=== PATIENT | male | born 1945 | race Caucasian/White ===

== ENCOUNTER 2019-08-04 09:34 | Emergency (ER) | payer OTHER, SELFPAY ==
[2019-08-04 09:41] VITALS: BP 162/65; PULSE 79; RESP 18; TEMP 36.5; O2SAT 94
--- NOTE | 2019-08-04 09:46 | ED.GENADULT ---
HPI - General Adult General Chief complaint: Back Pain/Injury Stated complaint: fell last night,back hurts Time Seen by Provider: 08/04/19 09:42 Source: patient Mode of arrival: Ambulatory Limitations: no limitations History of Present Illness HPI narrative: 73-year-old male here for evaluation of left lower back/rib pain. Patient states that last evening he admits to having some alcohol. States that he slipped in his bathroom falling back hitting this portion of his back on the toilet. Did not hit his head. No loss of consciousness. No other injuries from the event. No problems breathing. Came in today for evaluation. Related Data Home Medications Medication Instructions Recorded Confirmed budesonide-formoterol [Symbicort] 2 puff INHALATION BID 08/04/19 08/04/19 clotrimazole [Athlete's Foot 1 applic TOPICAL BID 08/04/19 08/04/19 (clotrimazole)] finasteride 1.25 mg PO DAILY 08/04/19 08/04/19 imiquimod 4 applic TOPICAL WEEKLY 08/04/19 08/04/19 ipratropium-albuterol [Combivent 1 puff INHALATION 6XD 08/04/19 08/04/19 Respimat] loratadine 10 mg PO DAILY 08/04/19 08/04/19 losartan 50 mg PO DAILY 08/04/19 08/04/19 minoxidil 0.6 mg PO DAILY 08/04/19 08/04/19 montelukast [Singulair] 10 mg PO DAILY 08/04/19 08/04/19 rosuvastatin 40 mg PO DAILY 08/04/19 08/04/19 terbinafine HCl 250 mg PO DAILY 08/04/19 08/04/19 Previous Rx's Medication Instructions Recorded acetaminophen-codeine 1 tab PO Q4-6H PRN #10 tab 08/04/19 [Tylenol-Codeine #3] Allergies Allergy/AdvReac Type Severity Reaction Status Date / Time No Known Drug Allergies Allergy Verified 08/04/19 09:53 Review of Systems Constitutional Constitutional: Denies fever(s) and Denies frequent falls ENT Ears, Nose, Mouth, and Throat: Denies vertigo and Denies dizziness Cardiovascular Cardiovascular: Denies chest pain and Denies dyspnea Respiratory Respiratory: Denies dyspnea Gastrointestinal Gastrointestinal: Denies abdominal pain, Denies nausea and Denies vomiting Musculoskeletal Musculoskeletal: Reports back pain Integumentary/Breasts Skin/Breast: Denies lesions and Denies rash Neurologic Neurologic: Denies behavioral changes, Denies vertigo, Denies dizziness and Denies frequent falls Psychiatric Psychiatric: Denies behavioral changes Hematologic/Lymphatic Hematologic/Lymphatic: Denies easy bleeding and Denies easy bruising Patient History Medical History Patient denies medical problems (Acute) Social History Smoking Status: Former smoker Exam Initial Vital Signs Initial Vital Signs: Vital Signs Temperature 97.7 F 08/04/19 09:41 Pulse Rate 79 08/04/19 09:41 Respiratory Rate 18 08/04/19 09:41 Blood Pressure 162/65 H 08/04/19 09:41 Pulse Oximetry 94 08/04/19 09:41 Const General: cooperative and comfortable Orientation: alert, awake and oriented x3 HENMT Head: normal to inspection and normocephalic Resp Effort & Inspection: normal respiratory effort Auscultation: clear to auscultation bilaterally Cardio Rate: regular rate Rhythm: regular rhythm Back/Spine/Pelvis Back: No CVA tenderness Other: Tenderness to palpation left lower posterior ribs. Skin Lesions: no lesions Rashes: no rashes Neuro General: alert, awake and oriented x3 Cognition: normal cognition Speech: speech normal Gait: normal gait Extrem General: normal to inspection and capillary refill normal Psych Appearance: grossly normal and well kempt Course Orders Ordered: ED Orders 08/04/19 09:46 XR ribs LT min 3V w CXR1V Stat Vital Signs Vital signs: Vital Signs - 8 hr 08/04/19 09:41 Temperature 97.7 F Pulse Rate 79 Respiratory Rate 18 Blood Pressure 162/65 H Pulse Oximetry 94 Medical Decision Making Imaging Data rib x-ray: Radiologist's impression: [address] [address] XRay Report Signed Patient: Reynaldo Joya CMR#: [id number] : 8Acct:[id number] Age/Sex: 73 / MDate of Service: 08/04/19 Loc: ED Accession Number: [id number] Procedure: XR ribs LT min 3V w CXR1V Ordering Provider: Marino Mccarthy D.O. PROCEDURE: XR RIBS LT MIN 3V W CXR1V INDICATIONS: Left lower ribs posterior after fall TECHNIQUE: 3 views of the left ribs were acquired, along with a single view chest. COMPARISON: None. FINDINGS: Surgical changes and devices: Left upper abdominal postoperative clips are seen. Bones and chest wall: There is a mild displaced left posterior 8th rib fracture. No definite, additional fractures can be seen. No suspicious lytic or blastic lesions are seen. S-shaped scoliotic curvature is seen. Age-appropriate bony degenerative changes are seen. Lungs and pleura: No pleural effusions or pneumothorax. Lungs appear clear. Mediastinum: Mediastinal contours appear normal. Heart size is normal. IMPRESSION: Mildly displaced left posterior 8th rib fracture. No pneumothorax is seen. Left upper abdominal postoperative change. Dictated by: Keny Machado M.D. on 08/04/2019 at 9:24 Approved by: Keny Machado M.D. on 08/04/2019 at 9:26 MDM Narrative Medical decision making narrative: Patient's symptoms fairly well controlled. No skin changes. X-ray show posterior 8th rib fracture which does correspond with his physical exam. No signs of pneumonia. No signs of pneumothorax. I did discuss this with the patient. We discussed symptom control and also the importance of taking big deep breaths. We discussed return precautions. He expressed understanding agreement plan. Discharge Plan Departure Patient Disposition: Home Clinical Impression: Left rib fracture Qualifiers: Encounter type: initial encounter Rib fracture type: single rib Fracture type: closed Qualified Code(s): S22.32XA - Fracture of one rib, left side, initial encounter for closed fracture Instructions: DI for Rib Fracture Activity Restrictions/Additional Instructions: It is important that you occasionally take deep breaths. Unfortunately rib fractures are notoriously uncomfortable especially with coughing. Take the medication as needed. Contact your primary provider for follow-up. Return to the emergency department for any new or worsening symptoms Prescriptions: New acetaminophen-codeine [Tylenol-Codeine #3] 300-30 mg tablet 1 tab PO Q4-6H PRN (Reason: pain) Qty: 10 RF: 0 No Action losartan 50 mg Tablet 50 mg PO DAILY RF: 0 terbinafine HCl 250 mg Tablet 250 mg PO DAILY RF: 0 imiquimod 5 % Cream In Packet 4 applic TOPICAL WEEKLY RF: 0 minoxidil 10 mg Tablet 0.6 mg PO DAILY RF: 0 montelukast [Singulair] 10 mg Tablet 10 mg PO DAILY RF: 0 clotrimazole [Athlete's Foot (clotrimazole)] 1 % Cream 1 applic TOPICAL BID RF: 0 finasteride 1 mg Tablet 1.25 mg PO DAILY RF: 0 rosuvastatin 40 mg Tablet 40 mg PO DAILY RF: 0 Symbicort 80-4.5 mcg/actuation Hfa Aerosol Inhaler 2 puff INHALATION BID RF: 0 loratadine 10 mg Capsule 10 mg PO DAILY RF: 0 Combivent Respimat 20-100 mcg/actuation Mist 1 puff INHALATION 6XD RF: 0
--- NOTE | 2019-08-04 11:00 | PC.NURSE ---
Pain is to left upper back/rib area
[2019-08-04 11:03] VITALS: PULSE 67; RESP 16; O2SAT 100
== END 2019-08-04 11:04 | disposition home or self-care (01) ==
PROVIDERS: Emergency Provider Emergency Medicine
DX: S22.32XA Fracture of one rib, left side, initial encounter for closed fracture (principal); W01.190A Fall on same level from slipping, tripping and stumbling with subsequent striking against furniture, initial encounter
CPT/HCPCS: 71101; 99282; 99283

== ENCOUNTER 2019-11-28 14:37 | Emergency (ER) | payer MEDICARE, SELFPAY ==
[2019-11-28 14:45] VITALS: BP 143/57; PULSE 74; RESP 18; TEMP 36.9; O2SAT 100
--- NOTE | 2019-11-28 15:31 | DI.RAD.S_ITS ---
PROCEDURE: XR RIBS LT MIN 3V W CXR1V INDICATIONS: chest pain after ski accident TECHNIQUE: 3 views of the left ribs were acquired, along with a single view chest. COMPARISON: [facility], , XR RIBS LT MIN 3V W CXR1V, 08/04/2019, 10:02. FINDINGS: Surgical changes and devices: None. Bones and chest wall: Posterior mildly displaced seventh and eighth rib fractures are noted. Seventh rib fracture was not as well-seen on prior exam. No suspicious bony lesions. Overlying soft tissues appear unremarkable. Lungs and pleura: No pleural effusions or pneumothorax. Lungs appear clear. Mediastinum: Mediastinal contours appear normal. Heart size is normal. IMPRESSION: Left posterior seventh and right rib fractures appearing subacute. Dictated by: Elida Dubois M.D. on 11/28/2019 at 17:38 Approved by: Elida Dubois M.D. on 11/28/2019 at 17:42
--- NOTE | 2019-11-28 15:35 | ED_ITS ---
HPI - Chest Pain General Chief Complaint: Chest Pain Stated Complaint: ski accident, chest pain Time Seen by Provider: 11/28/19 15:33 Source: patient Mode of arrival: Ambulatory Limitations: no limitations History of Present Illness HPI narrative: 74-year-old gentleman with asthma, hypertension, hyperlipidemia who was skiing about [place] today fell his goggles scratched the left side of his eye and thinks the top of his ski pole impacted his left anterior axillary line and is concerned that he may have a rib fracture. He was able to ski and other 7 runs in the attempt to get back to his truck after this incident and then tried to hours to get home without any difficulties. He has taken 2 aspirin for pain control and not requesting any additional pain medication at this time. Related Data Home Medications Medication Instructions Recorded Confirmed budesonide-formoterol [Symbicort] 1 puff INHALATION DAILY 08/04/19 11/28/19 clotrimazole [Athlete's Foot 1 applic TOPICAL BID 08/04/19 11/28/19 (clotrimazole)] finasteride 1.25 mg PO DAILY 08/04/19 11/28/19 imiquimod 4 applic TOPICAL WEEKLY 08/04/19 11/28/19 ipratropium-albuterol [Combivent 2 - 3 puff INHALATION DAILY 08/04/19 11/28/19 Respimat] loratadine 10 mg PO DAILY PRN 08/04/19 11/28/19 losartan 50 mg PO DAILY 08/04/19 11/28/19 montelukast [Singulair] 10 mg PO DAILY 08/04/19 11/28/19 rosuvastatin 40 mg PO DAILY 08/04/19 11/28/19 terbinafine HCl 250 mg PO DAILY 08/04/19 11/28/19 A/R [place] 2 tab PO DAILY 11/28/19 11/28/19 Anthocyanins 1 dose PO DAILY 11/28/19 11/28/19 Brucaea Seed Oil 1 applic TOPICAL DIRECTED PRN 11/28/19 11/28/19 N-Acetal L-Cysteine 600 mg PO DAILY 11/28/19 11/28/19 [place] 450 mg PO DAILY 11/28/19 11/28/19 Policosanol 10mg 10 mg PO DAILY 11/28/19 11/28/19 Quercetin 1,500 mg PO DAILY 11/28/19 11/28/19 Siberian Ginseng 400 mg PO DAILY 11/28/19 11/28/19 Turmeric Curcumin 1 dose PO DAILY 11/28/19 11/28/19 ascorbic acid (vitamin C) 1 g PO DAILY 11/28/19 11/28/19 cholecalciferol (vitamin D3) 2,000 unit PO DAILY 11/28/19 11/28/19 [Vitamin D3] cod liver oil 30 ml PO DAILY 11/28/19 11/28/19 coenzyme Q10 [CoQ-10] 100 mg PO DAILY 11/28/19 11/28/19 garlic extract 600 mg PO DAILY 11/28/19 11/28/19 minoxidil 0.6 mg PO DAILY 11/28/19 11/28/19 multivitamin with minerals 2 tab PO DAILY 11/28/19 11/28/19 niacinamide 500 mg PO DAILY 11/28/19 11/28/19 prasterone (dhea) [DHEA] 50 mg PO DAILY 11/28/19 11/28/19 resveratrol 250 mg PO DAILY 11/28/19 11/28/19 saw palmetto 160 mg PO DAILY 11/28/19 11/28/19 sildenafil (pulm.hypertension) 20 - 40 mg PO DAILY PRN 11/28/19 11/28/19 undecylenic acid 1 applic TOPICAL BID PRN 11/28/19 11/28/19 Allergies Allergy/AdvReac Type Severity Reaction Status Date / Time No Known Drug Allergies Allergy Verified 08/04/19 09:53 Review of Systems Review of Systems Narrative: Denies ? fever ? cough ? cold ? chills ? dyspnea ? orthopnea ? wheezing ? abdominal pain ? change to bowel or bladder habits ? nausea vomiting ? skin changes ? rashes Patient History Medical History Asthma (Acute) Hyperlipidemia (Acute) Hypertension (Acute) Patient denies medical problems (Acute) Social History Smoking Status: Former smoker Smoking Status: Former smoker alcohol intake frequency: a few times a week Substance Use Type: does not use Exam Narrative Exam Narrative: General: Healthy appearing, in no acute distress. Able to give a complete and coherent history. Well-nourished well-developed HEENT: Moist mucous membranes, normal sclera with reactive pupils, minor abrasion left lateral eyebrow with lateral subconjunctival hemorrhage, mild, left side Neck: No JVD, supple Respiratory: Lungs are clear to auscultation, no wheezing no rales no rhonchi. Full and symmetrical air movement, point tender nipple/left anterior axillary line without contusion abrasion or hematoma Cardiac: Regular rate and rhythm no murmurs no bruits Abdomen: Soft nontender good bowel tones, no flank pain Skin: Warm and dry, no rashes Neurologic: Grossly neurologically intact with no obvious asymmetries or abnormalities Extremities: No trauma, well perfused Psych: Cooperative, appropriate insight and affect Initial Vital Signs Initial Vital Signs: Vital Signs Temperature 98.5 F 11/28/19 14:45 Pulse Rate 74 11/28/19 14:45 Respiratory Rate 18 11/28/19 14:45 Blood Pressure 143/57 H 11/28/19 14:45 Pulse Oximetry 100 11/28/19 14:45 Course Orders Ordered: ED Orders 11/28/19 14:54 EKG-12 Lead Stat 11/28/19 15:31 XR ribs LT min 3V w CXR1V Stat Vital Signs Vital signs: Vital Signs - 8 hr 11/28/19 14:45 11/28/19 17:00 Temperature 98.5 F Pulse Rate 74 64 Respiratory Rate 18 14 Blood Pressure 143/57 H Blood Pressure [Left Arm] 140/60 Pulse Oximetry 100 98 MDM - Chest Pain Medical Records Data Attestation: I reviewed the patient's medical records. Imaging Data Chest x-ray: Attestation: I personally reviewed and interpreted this imaging study as follows: Radiologist's Impression: IMPRESSION: Left posterior seventh and right rib fractures appearing subacute. Dictated by: Elida Dubois M.D. on 11/28/2019 at 17:38 MDM Narrative Medical decision making narrative: No evidence of significant lung injury or rib fracture. No neck pain to suggest cervical injury and minor abrasion to the eye with subconjunctival hemorrhage only. Safe for home discharge. Discharge Plan Departure Patient Disposition: Home Clinical Impression: Fall Qualifiers: Encounter type: initial encounter Qualified Code(s): W19.XXXA - Unspecified fall, initial encounter Contusion of rib on left side Qualifiers: Encounter type: initial encounter Qualified Code(s): S20.212A - Contusion of left front wall of thorax, initial encounter Subconjunctival hemorrhage Qualifiers: Laterality: left Qualified Code(s): H11.32 - Conjunctival hemorrhage, left eye Prescriptions: No Action losartan 50 mg Tablet 50 mg PO DAILY RF: 0 terbinafine HCl 250 mg Tablet 250 mg PO DAILY RF: 0 imiquimod 5 % Cream In Packet 4 applic TOPICAL WEEKLY RF: 0 montelukast [Singulair] 10 mg Tablet 10 mg PO DAILY RF: 0 clotrimazole [Athlete's Foot (clotrimazole)] 1 % Cream 1 applic TOPICAL BID RF: 0 finasteride 1 mg Tablet 1.25 mg PO DAILY RF: 0 rosuvastatin 40 mg Tablet 40 mg PO DAILY RF: 0 budesonide-formoterol [Symbicort] 80-4.5 mcg/actuation Hfa Aerosol Inhaler 1 puff INHALATION DAILY RF: 0 loratadine 10 mg Capsule 10 mg PO DAILY PRN (Reason: Allergy Symptoms) RF: 0 Combivent Respimat 20-100 mcg/actuation Mist 2 - 3 puff INHALATION DAILY RF: 0 sildenafil (pulm.hypertension) 20 mg tablet 20 - 40 mg PO DAILY PRN (Reason: as directed) RF: 0 A/R [place] 2 tab PO DAILY RF: 0 Anthocyanins 1 dose PO DAILY RF: 0 ascorbic acid (vitamin C) 1,000 mg Tablet 1 g PO DAILY RF: 0 saw palmetto 160 mg Capsule 160 mg PO DAILY RF: 0 cod liver oil Oil 30 ml PO DAILY RF: 0 niacinamide 500 mg Tablet 500 mg PO DAILY RF: 0 multivitamin with minerals Tablet 2 tab PO DAILY RF: 0 coenzyme Q10 [CoQ-10] 100 mg Capsule 100 mg PO DAILY RF: 0 garlic extract 600 mg Tablet 600 mg PO DAILY RF: 0 undecylenic acid 25 % Solution 1 applic TOPICAL BID PRN (Reason: nail fungus) RF: 0 cholecalciferol (vitamin D3) [Vitamin D3] 50 mcg (2,000 unit) Capsule 2,000 unit PO DAILY RF: 0 resveratrol 250 mg Capsule 250 mg PO DAILY RF: 0 DHEA 50 mg Tablet 50 mg PO DAILY RF: 0 Brucaea Seed Oil 1 applic topical DIRECTED PRN (Reason: nail fungus) RF: 0 N-Acetal L-Cysteine 600 mg 600 mg PO DAILY RF: 0 [place] 450 mg 450 mg PO DAILY RF: 0 Policosanol 10mg 10 mg PO DAILY RF: 0 Quercetin 500 mg 1,500 mg PO DAILY RF: 0 Siberian Ginseng 400 mg 400 mg PO DAILY RF: 0 Turmeric Curcumin 1 dose PO DAILY RF: 0 minoxidil 0.6 mg 0.6 mg PO DAILY RF: 0
[2019-11-28 17:00] VITALS: BP 140/60; PULSE 64; RESP 14; O2SAT 98
[2019-11-28 18:49] VITALS: BP 140/60; PULSE 60; RESP 12; O2SAT 99
== END 2019-11-28 18:50 | disposition home or self-care (01) ==
PROVIDERS: Emergency Provider Emergency Medicine
DX: S20.212A Contusion of left front wall of thorax, initial encounter (principal); H11.32 Conjunctival hemorrhage, left eye; J45.909 Unspecified asthma, uncomplicated; R07.9 Chest pain, unspecified; I10 Essential (primary) hypertension; E78.5 Hyperlipidemia, unspecified; V00.328A Other snow-ski accident, initial encounter
CPT/HCPCS: 71101; 93005; 93010; 99283; 99284

== ENCOUNTER → 2021-08-23 11:32 | Outpatient (CLI) | payer MEDICARE, SELFPAY ==
[2021-08-23 12:05] LABS: COVID19 -Nasal RAPID Negative (Negative)
== END ==
PROVIDERS: Visit Provider Nurse Practitioner Family
DX: R97.20 Elevated prostate specific antigen [PSA] (principal)
CPT/HCPCS: 87635

== ENCOUNTER → 2022-12-18 10:24 | Outpatient (CLI) | payer MEDICARE, SELFPAY ==
--- NOTE | 2022-12-18 10:25 | DI.RAD.S_ITS ---
PROCEDURE: XR CHEST 2V INDICATIONS: Cough and wheezing TECHNIQUE: 2 views of the chest were acquired. COMPARISON: None. FINDINGS: Surgical changes and devices: None. Lungs and pleura: Lungs are clear. No pleural effusions or pneumothorax. Mediastinum: Mediastinal contours are normal. Heart size is enlarged. Bones and chest wall: No suspicious bony abnormalities. Soft tissues appear unremarkable. IMPRESSION: No acute cardiopulmonary pathology. Dictated by: Jose Daniel Landin M.D. on 12/18/2022 at 10:54 Approved by: Jose Daniel Landin M.D. on 12/18/2022 at 10:54
== END ==
PROVIDERS: PCP Family Medicine; Referring Provider Registered Nurse; Visit Provider Registered Nurse
DX: R05.9 Cough, unspecified (principal)
CPT/HCPCS: 71046

== ENCOUNTER → 2023-09-11 14:55 | Outpatient (CLI) | payer MEDICARE, SELFPAY | PROVIDERS: PCP Family Medicine; Visit Provider Nurse Practitioner Family | DX: J02.9 Acute pharyngitis, unspecified (principal) | CPT/HCPCS: 87070 ==

== ENCOUNTER → 2023-10-18 13:01 | Outpatient (CLI) | payer MEDICARE, SELFPAY ==
[2023-10-18 14:28] LABS: COVID-19 CEPHEID 4-PLEX PCR Negative (Negative); Influenza A - CEPHEID Flu A NEGATIVE (NEGATIVE); Influenza B - CEPHEID Flu B NEGATIVE (NEGATIVE); Respiratory Syncytial Virus Negative (Negative)
== END ==
PROVIDERS: PCP Family Medicine; Visit Provider Physician Assistant
DX: R05.1 Acute cough (principal)
CPT/HCPCS: 0241U

== ENCOUNTER → 2023-10-18 13:24 | Outpatient (CLI) | payer MEDICARE, SELFPAY ==
--- NOTE | 2023-10-18 13:25 | DI.RAD.S_ITS ---
PROCEDURE: XR CHEST 2V INDICATIONS: cough, wheeze, hx asthma TECHNIQUE: 2 views of the chest were acquired. COMPARISON: [facility], CR, XR CHEST 2V, 12/18/2022, 10:36. FINDINGS: Surgical changes and devices: None. Lungs and pleura: Lungs are clear. No pleural effusions or pneumothorax. Mediastinum: Mediastinal contours are normal. Heart size is normal. Bones and chest wall: No suspicious bony abnormalities. Accentuated thoracic kyphosis is seen. Age-appropriate bony degenerative changes are seen. Soft tissues appear unremarkable. IMPRESSION: No acute cardiopulmonary abnormality is seen. No focal infiltrates are seen. Dictated by: Keny Machado M.D. on 10/18/2023 at 13:14 Approved by: Keny Machado M.D. on 10/18/2023 at 13:14
== END ==
LOC: RAD 13:25
PROVIDERS: PCP Family Medicine; Referring Provider Physician Assistant; Visit Provider Physician Assistant
DX: R05.1 Acute cough (principal); J45.909 Unspecified asthma, uncomplicated; M40.204 Unspecified kyphosis, thoracic region
CPT/HCPCS: 0241U; 71046

== ENCOUNTER 2024-08-14 01:08 | Emergency (ER) | payer MEDICARE, SELFPAY ==
[2024-08-14 01:14] VITALS: BP 136/63; PULSE 57; RESP 16; O2SAT 98; BMI 25.8
--- NOTE | 2024-08-14 01:17 | EKG_ITS ---
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
--- NOTE | 2024-08-14 01:22 | ED_ITS ---
HPI - Chest Pain General Chief Complaint: Chest Pain Stated Complaint: chest pain Time Seen by Provider: 08/14/24 01:09 Source: patient Mode of arrival: Ambulatory History of Present Illness HPI narrative: 78-year-old male with history of hypertension, hyperlipidemia, history of thoracic aneurysm (monitored yearly by cardiology - no management at this time) presents by private vehicle for chest pain. Patient states that 2 days ago he notice central chest pressure. He kept expecting it to go away on its own. This evening when he went to go lay down for bed the chest pain intensified and he presented for evaluation. Patient noted to have STEMI on arrival. Denies previous history of coronary artery disease. No history of stents. Related Data Home Medications Medication Instructions Recorded Confirmed budesonide-formoterol HFA 80 1 puff inhalation DAILY 08/04/19 10/18/23 mcg-4.5 mcg/actuation aerosol inhaler (Symbicort) clotrimazole 1 % topical cream 1 applic topical BID 08/04/19 10/18/23 (Athlete's Foot (clotrimazole)) finasteride 1 mg tablet 1.25 mg PO DAILY 08/04/19 10/18/23 imiquimod 5 % topical cream packet 4 applic topical WEEKLY 08/04/19 10/18/23 ipratropium 20 mcg-albuterol 100 2 - 3 puff inhalation DAILY 08/04/19 10/18/23 mcg/actuation mist for inhalation (Combivent Respimat) loratadine 10 mg capsule 10 mg PO DAILY PRN Allergy Symptoms 08/04/19 10/18/23 losartan 50 mg tablet 50 mg PO DAILY 08/04/19 10/18/23 montelukast 10 mg tablet 10 mg PO DAILY 08/04/19 10/18/23 (Singulair) rosuvastatin 40 mg tablet 40 mg PO DAILY 08/04/19 10/18/23 terbinafine HCl 250 mg tablet 250 mg PO DAILY 08/04/19 10/18/23 A/R [place] 2 tab PO DAILY 11/28/19 10/18/23 Anthocyanins 1 dose PO DAILY 11/28/19 10/18/23 Brucaea Seed Oil 1 applic topical DIRECTED PRN 11/28/19 10/18/23 nail fungus N-Acetal L-Cysteine 600 mg PO DAILY 11/28/19 10/18/23 [place] 450 mg PO DAILY 11/28/19 10/18/23 Policosanol 10mg 10 mg PO DAILY 11/28/19 10/18/23 Quercetin 1,500 mg PO DAILY 11/28/19 10/18/23 Siberian Ginseng 400 mg PO DAILY 11/28/19 10/18/23 Turmeric Curcumin 1 dose PO DAILY 11/28/19 10/18/23 ascorbic acid (vitamin C) 1,000 mg 1 g PO DAILY 11/28/19 10/18/23 tablet cholecalciferol (vitamin D3) 50 2,000 unit PO DAILY 11/28/19 10/18/23 mcg (2,000 unit) capsule (Vitamin D3) cod liver oil 30 ml PO DAILY 11/28/19 10/18/23 coenzyme Q10 100 mg capsule 100 mg PO DAILY 11/28/19 10/18/23 (CoQ-10) garlic extract 600 mg tablet 600 mg PO DAILY 11/28/19 10/18/23 minoxidil 0.6 mg PO DAILY 11/28/19 10/18/23 multivitamin with minerals 2 tab PO DAILY 11/28/19 10/18/23 niacinamide 500 mg tablet 500 mg PO DAILY 11/28/19 10/18/23 prasterone (dhea) 50 mg tablet 50 mg PO DAILY 11/28/19 10/18/23 (DHEA) resveratrol 250 mg capsule 250 mg PO DAILY 11/28/19 10/18/23 saw palmetto 160 mg capsule 160 mg PO DAILY 11/28/19 10/18/23 sildenafil (pulm.hypertension) 20 20 - 40 mg PO DAILY PRN as directed 11/28/19 10/18/23 mg tablet undecylenic acid 25 % topical 1 applic topical BID PRN nail 11/28/19 10/18/23 solution fungus Previous Rx's Medication Instructions Recorded amoxicillin 875 mg-potassium 1 tab PO BID pneumonia #10 tabs 10/18/23 clavulanate 125 mg tablet azithromycin 250 mg tablet See Rx Instructions PO .COMPLEX 10/18/23 pneumonia #6 tabs Allergies Allergy/AdvReac Type Severity Reaction Status Date / Time No Known Drug Allergies Allergy Verified 10/18/23 12:58 Patient History Medical History (Updated 08/14/24 @ 01:27 by Ruth Erickson MD) Asthma Hyperlipidemia Hypertension Patient denies medical problems Social History Smoking Status: Former smoker Smoking Status: Former smoker alcohol intake frequency: a few times a week Substance Use Type: does not use Exam Initial Vital Signs Initial Vital Signs: Vital Signs Pulse Rate 57 L 08/14/24 01:14 Respiratory Rate 16 08/14/24 01:14 Blood Pressure 136/63 08/14/24 01:14 Pulse Oximetry 98 08/14/24 01:14 Oxygen Delivery Method Room Air 08/14/24 01:14 Const: Awake, alert, no acute distress, nontoxic appearing Cardiac: regular rate, regular rhythm RESP: unlabored, clear bilaterally, no wheezing MSK: No edema, full range of motion, pulses equal Skin: Warm, Dry, intact, no rashes Neuro: AO x3, CN II-XII grossly intact, moves all extremities Course Orders Ordered: ED Orders 08/14/24 01:14 EKG-12 Lead Stat 08/14/24 01:20 Complete Blood Count AUTO DIFF Stat Comprehensive Metabolic Panel Stat Lipase Stat Magnesium Stat NT-proBNP (BNP-Adult 18+) Stat PTT Partial Thromboplastin Fernando Stat Prothrombin Time INR Stat Troponin & CK Cardiac Panel Stat Discontinued Medications Aspirin (Aspirin 81 Mg Chew Tab) 324 mg PO NOW ONE Stop: 08/14/24 01:15 Last Admin: 08/14/24 01:25 Dose: 324 mg Documented By: AJ Clopidogrel Bisulfate (Clopidogrel 75 Mg Tablet) 300 mg PO NOW ONE Stop: 08/14/24 01:28 Last Admin: 08/14/24 01:37 Dose: 300 mg Documented By: AJ Heparin Sodium (Porcine) (Heparin 5,000 Unit/Ml Vial) 5,000 unit 60 unit/kg (5000 unit) IV NOW ONE Stop: 08/14/24 01:19 Last Admin: 08/14/24 01:26 Dose: 5,000 unit Documented By: AJ Vital Signs Vital signs: Vital Signs - 8 hr 08/14/24 01:14 08/14/24 01:29 Temperature 97.2 F L Pulse Rate 57 L 72 Respiratory Rate 16 16 Blood Pressure 136/63 209/86 H Pulse Oximetry 98 98 Oxygen Delivery Method Room Air Room Air MDM - Chest Pain Lab Data 08/14/24 01:20 08/14/24 01:20 Labs: Lab Results 08/14/24 Range/Units 01:20 WBC 7.1 (4.5-11.0) X10^3/uL RBC 4.74 (4.5-5.9) X10^6/uL Hgb 14.7 (13.5-17.5) g/dL Hct 43.5 (41-53) % MCV 91.8 (80-100) fL MCH 31.0 (26-34) PG MCHC 33.8 (30-36) % RDW 14.0 (11.6-14.8) % Plt Count 223 (150-400) X10^3/uL Neut % (Auto) 50.1 (50-75) % Lymph % (Auto) 31.6 (25-40) % [place] % (Auto) 12.1 (3-14) % Eos % (Auto) 5.4 H (2-4) % Baso % (Auto) 0.8 (0-2) % Neut # (Auto) 3600 (1737-1638) /uL Lymph # (Auto) 2200 (3992-0954) /uL Forest # (Auto) 900 (0-900) /uL Eos # (Auto) 400 (0-450) /uL Baso # (Auto) 100 (0-100) /uL PT 10.5 (9.4-12.5) SECONDS INR 0.9 (0.9-1.3) APTT 36 (25.1-36.5) SECONDS Sodium 136 L (137-145) mmol/L Potassium 3.6 (3.4-5.1) mmol/L Chloride 104 (98-107) mmol/L Carbon Dioxide 30 (22-32) mmol/L BUN 19 (9-20) mg/dL Creatinine 1.13 (0.66-1.25) mg/dL Estimated GFR > 60 (>60) mL/min BUN/Creatinine Ratio 16.8 (6-22) Glucose 113 H (80-110) mg/dL Calcium 9.6 (8.4-10.2) mg/dL Magnesium 2.0 (1.6-2.3) mg/dL Total Bilirubin 0.4 (0.2-1.3) mg/dL AST 51 (17-59) IU/L ALT 30 (<50) IU/L Alkaline Phosphatase 44 (38-126) U/L Total Creatine Kinase 98 (55-170) U/L Troponin I 0.916 H* (0.01-0.034) ng/mL NT-Pro-B Natriuret Pep 731 H (<450) pg/mL Total Protein 6.7 (6.3-8.2) g/dL Albumin 4.0 (3.5-5.0) g/dL Globulin 2.7 (1.7-4.1) g/dL Albumin/Globulin Ratio 1.5 (1.0-2.8) Lipase 187 (23-300) U/L ECG Data Attestation: I personally reviewed and interpreted this ECG as follows: Interpretation: ST elevations II, III, aVF, depressions V2, V3, V4. STEMI. Sinus bradycardia 57bpm MDM Narrative Medical decision making narrative: Two days of central chest pain, found to have STEMI on arrival. Patient is calm, cooperative, not diaphoretic or in severe distress at this time. Aspirin 2, heparin bolus administered. Stat call placed to [facility], patient accepted by Dr. Kolb. Patient placed on defibrillator. He was made aware of his diagnosis and agrees to transport. Discharge Plan Departure Patient Disposition: [facility] Clinical Impression: ST elevation (STEMI) myocardial infarction Prescriptions: No Action azithromycin 250 mg tablet See Rx Instructions PO .COMPLEX Qty: 6 0RF Rx Instructions: For 250 mg dose pack: take 500 mg today (day 1), then 250 mg for 4 days (days 2-5) PO amoxicillin-pot clavulanate 875-125 mg tablet 1 tab PO BID Qty: 10 0RF losartan 50 mg Tablet 50 mg PO DAILY terbinafine HCl 250 mg Tablet 250 mg PO DAILY imiquimod 5 % Cream In Packet 4 applic TOPICAL WEEKLY montelukast [Singulair] 10 mg Tablet 10 mg PO DAILY Patient Comments: during hay fever season only clotrimazole [Athlete's Foot (clotrimazole)] 1 % Cream 1 applic TOPICAL BID finasteride 1 mg Tablet 1.25 mg PO DAILY rosuvastatin 40 mg Tablet 40 mg PO DAILY budesonide-formoterol [Symbicort] 80-4.5 mcg/actuation Hfa Aerosol Inhaler 1 puff INHALATION DAILY loratadine 10 mg Capsule 10 mg PO DAILY PRN (Reason: Allergy Symptoms) Patient Comments: patient lists during hay fever season only Combivent Respimat 20-100 mcg/actuation Mist 2 - 3 puff INHALATION DAILY sildenafil (pulm.hypertension) 20 mg tablet 20 - 40 mg PO DAILY PRN (Reason: as directed) Patient Comments: TAKE 1 TO 2 TABLETS BY MOUTH ONCE daily NEEDED A/R [place] 2 tab PO DAILY Patient Comments: Glucosamine 750mg, MSM 850mg Anthocyanins 1 dose PO DAILY Patient Comments: in vick juice ascorbic acid (vitamin C) 1,000 mg Tablet 1 g PO DAILY saw palmetto 160 mg Capsule 160 mg PO DAILY cod liver oil Oil 30 ml PO DAILY niacinamide 500 mg Tablet 500 mg PO DAILY multivitamin with minerals Tablet 2 tab PO DAILY Patient Comments: Al's formula coenzyme Q10 [CoQ-10] 100 mg Capsule 100 mg PO DAILY garlic extract 600 mg Tablet 600 mg PO DAILY undecylenic acid 25 % Solution 1 applic TOPICAL BID PRN (Reason: nail fungus) cholecalciferol (vitamin D3) [Vitamin D3] 50 mcg (2,000 unit) Capsule 2,000 unit PO DAILY resveratrol 250 mg Capsule 250 mg PO DAILY DHEA 50 mg Tablet 50 mg PO DAILY Brucaea Seed Oil 1 applic topical DIRECTED PRN (Reason: nail fungus) N-Acetal L-Cysteine 600 mg 600 mg PO DAILY [place] 450 mg 450 mg PO DAILY Policosanol 10mg 10 mg PO DAILY Quercetin 500 mg 1,500 mg PO DAILY Siberian Ginseng 400 mg 400 mg PO DAILY Turmeric Curcumin 1 dose PO DAILY minoxidil 0.6 mg 0.6 mg PO DAILY Referrals: Tea Campbell MD [Primary Care Provider] -
[2024-08-14] MEDS: ASPIRIN 81 MG CHEW TAB 324 MG PO (01:25)
[2024-08-14 01:26] LABS: Add Manual Diff / Slide Review NO; Basophils Absolute Auto 100 /uL (0-100); Basophils Percent Auto 0.8 % (0-2); Eosinophils Absolute Auto 400 /uL (0-450); Eosinophils Percent Auto 5.4 % (2-4); Hematocrit 43.5 % (41-53); Hemoglobin 14.7 g/dL (13.5-17.5); Lymphocytes Absolute Auto 2200 /uL (1100-4500); Lymphocytes Percent Auto 31.6 % (25-40); Mean Corpuscular HGB Conc 33.8 % (30-36); Mean Corpuscular Volume 91.8 fL (80-100); Monocytes Absolute Auto 900 /uL (0-900); Monocytes Percent Auto 12.1 % (3-14); Neutrophils Absolute Auto 3600 /uL (1500-7000); Neutrophils Percent Auto 50.1 % (50-75); Platelet Count 223 X10^3/uL (150-400); Red Blood Cell Count 4.74 X10^6/uL (4.5-5.9); White Blood Cell Count 7.1 X10^3/uL (4.5-11.0)
[2024-08-14] MEDS: HEPARIN 5,000 UNIT/ML VIAL 5000 UNIT IV (01:26)
[2024-08-14 01:29] VITALS: BP 209/86; PULSE 72; RESP 16; TEMP 36.2; O2SAT 98
[2024-08-14 01:33] LABS: INR 0.9 (0.9-1.3); Prothrombin Time 10.5 SECONDS (9.4-12.5)
[2024-08-14 01:36] LABS: Alanine Aminotransferase 30 IU/L (<50); Albumin Globulin Ratio 1.5 (1.0-2.8); Alkaline Phosphatase 44 U/L (38-126); Aspartate Aminotransferase 51 IU/L (17-59); BUN Creatinine Ratio 16.8 (6-22); Bilirubin Total 0.4 mg/dL (0.2-1.3); Blood Urea Nitrogen 19 mg/dL (9-20); Calcium 9.6 mg/dL (8.4-10.2); Carbon Dioxide 30 mmol/L (22-32); Chloride 104 mmol/L (98-107); Creatine Kinase 98 U/L (55-170); Estimated Glomerular Filt Rate > 60 mL/min (>60); Globulin 2.7 g/dL (1.7-4.1); Glucose 113 mg/dL (80-110); HEMOLYSIS 26 (0-50); Lipase 187 U/L (23-300); PTT Partial Thromboplastin Tim 36 SECONDS (25.1-36.5); Potassium 3.6 mmol/L (3.4-5.1); Sodium 136 mmol/L (137-145); Total Protein 6.7 g/dL (6.3-8.2)
[2024-08-14] MEDS: CLOPIDOGREL 75 MG TABLET 300 MG PO (01:37)
[2024-08-14 01:48] LABS: NT-proBNP (BNP-Adult 18+) 731 pg/mL (<450)
[2024-08-14 01:51] LABS: Troponin I 0.916 ng/mL (0.01-0.034)
== END 2024-08-14 01:38 | disposition short-term general hospital (02) ==
PROVIDERS: Emergency Provider Emergency Medicine; PCP Family Medicine
DX: I21.3 ST elevation (STEMI) myocardial infarction of unspecified site (principal); R00.1 Bradycardia, unspecified
CPT/HCPCS: 36415; 80053; 82550; 83690; 83735; 83880; 84484; 85025; 85610; 85730; 93005; 96374; 99284; 99285; J1644

== ENCOUNTER → 2024-10-17 07:42 | Outpatient (CLI) | payer MEDICARE, SELFPAY ==
--- NOTE | 2024-10-17 | DI.MRI.S_ITS ---
PROCEDURE: MR ANKLE RT WO CON INDICATIONS: Strain of Achilles Tendon TECHNIQUE: Noncontrast sagittal T1 spin echo and T2 fast spin echo with fat saturation, axial proton density fast spin echo and T2 fast spin echo with fat saturation, coronal T1 spin echo and T2 fast spin echo with fat saturation through the ankle/hindfoot. COMPARISON: None. FINDINGS: Image quality: Excellent. Bones and joints: There is diffuse subcutaneous soft tissue edema around distal lower leg extending to hindfoot and midfoot. There is prior internal fixation of tibial shaft with intramedullary meaghan and surgical screws in place causing significant susceptibility artifacts. No gross marrow edema. No acute fracture or dislocation. No osteochondral injuries of talar dome. Mild midfoot and hindfoot joint osteoarthritic changes are seen. Small amount of tibiotalar joint effusion, no loose bodies. Small plantar and dorsal calcaneal enthesophytes are seen. Medial structures: The posterior tibialis, flexor digitorum longus, and flexor hallucis longus tendons are intact. The posterior tibial neurovascular bundle appears normal within the tarsal tunnel, without extrinsic mass effect. The deltoid ligament is intact. Mildly thickened spring ligament is noted near its distal insertion. Lateral structures: The anterior talofibular, calcaneofibular, and posterior talofibular ligaments appear intact. More superiorly, the anterior and posterior tibiofibular ligaments appear intact, as is the intermalleolar ligament. The tibiofibular syndesmosis is normal in width at 2 mm or less. The peroneus longus and brevis tendons demonstrate normal location and morphology. No signal abnormality is seen within the sinus tarsi. Anterior structures: The tibialis anterior, extensor hallucis longus, and extensor digitorum longus tendons appear intact. The dorsal talonavicular ligament appears intact. Posterior and plantar structures: Moderate grade intrasubstance partial-thickness tear involving Achilles tendon approximately 6.3 cm from its insertion on posterior calcaneus with up to 1.6 cm proximal retraction of torn tendon fibers . No full-thickness tendon rupture. Medial and lateral bands of the plantar fascia are of normal thickness. No abductor digiti quinti muscle atrophy to suggest Dillon neuropathy. IMPRESSION: 1. Moderate grade intrasubstance partial-thickness tear involving Achilles tendon approximately 6.3 cm from its insertion of posterior calcaneus with up to 1.6 cm proximal retraction of torn tendon fibers. Significant surrounding edema and fluid is seen. No definite full-thickness Achilles tendon rupture. 2. Postsurgical changes in distal tibial shaft with susceptibility artifacts. Mild midfoot and hindfoot joint osteoarthritis. No acute fracture or dislocation. No osteochondral injuries of talar dome. Small tibiotalar joint effusion, no loose bodies. 3. Extensor, flexor, and peroneus tendons are intact. 4. Low-grade sprain involving spring ligament near its distal insertion. No full-thickness ankle ligament rupture. Dictated by: Jose Daniel Landin M.D. on 10/17/2024 at 16:15 Approved by: Jose Daniel Landin M.D. on 10/17/2024 at 16:25
== END ==
PROVIDERS: PCP Family Medicine; Referring Provider Physician Assistant; Visit Provider Physician Assistant
DX: S86.011A Strain of right Achilles tendon, initial encounter (principal); S86.811A Strain of other muscle(s) and tendon(s) at lower leg level, right leg, initial encounter; M19.071 Primary osteoarthritis, right ankle and foot; M25.471 Effusion, right ankle; X58.XXXA Exposure to other specified factors, initial encounter
CPT/HCPCS: 73721

== ENCOUNTER → 2024-10-25 13:39 | Outpatient (CLI) | payer MEDICARE, SELFPAY ==
--- NOTE | 2024-10-25 13:42 | DI.US.S_ITS ---
PROCEDURE: US EXTREMITY NONVASC LOWER RT INDICATIONS: strain in ach TECHNIQUE: Real-time scanning was performed of the right Achilles tendon, with image documentation. COMPARISON: [facility], MR, MR ANKLE RT WO CON, 10/17/2024, 7:46. FINDINGS: There is heterogeneity and thickening of the pre insertional Achilles tendon up to a maximum of 1.1 cm in the AP dimension. Anechoic regions are present within the distal pre insertional Achilles tendon as it approaches the calcaneal tuberosity, indicative of interstitial tearing. Subcutaneous hyperechoic fat signal is present, likely indicative of fat stranding. There is no focal full-thickness discontinuity of the Achilles tendon along its visualized course. IMPRESSION: Interstitial pre insertional Achilles tendon tear, superimposed on moderate tendinosis, without a full-thickness tear. Dictated by: Zackary Arizmendi M.D. on 10/25/2024 at 16:08 Approved by: Zackary Arizmendi M.D. on 10/25/2024 at 16:11
== END ==
PROVIDERS: PCP Family Medicine; Referring Provider Physician Assistant; Visit Provider Physician Assistant
DX: S86.811A Strain of other muscle(s) and tendon(s) at lower leg level, right leg, initial encounter (principal); X58.XXXA Exposure to other specified factors, initial encounter
CPT/HCPCS: 76882

== ENCOUNTER 2024-12-01 08:30 | Outpatient (RCR) | payer MEDICARE, SELFPAY | END 2024-12-01 10:30 | LOC: CAR 08:30 | PROVIDERS: PCP Family Medicine; Referring Provider Internal Medicine; Visit Provider Internal Medicine | DX: I21.11 ST elevation (STEMI) myocardial infarction involving right coronary artery (principal) | CPT/HCPCS: 93798 ==

== ENCOUNTER → 2024-12-31 14:24 | Outpatient (CLI) | payer MEDICARE, SELFPAY ==
--- NOTE | 2024-12-31 14:50 | DI.RAD.S_ITS ---
PROCEDURE: XR CHEST 2V INDICATIONS: Cough TECHNIQUE: 2 views of the chest were acquired. COMPARISON: [facility], CR, XR CHEST 2V, 10/18/2023, 13:45. FINDINGS: Surgical changes and devices: None. Lungs and pleura: Lungs are clear. No pleural effusions or pneumothorax. Mediastinum: Mediastinal contours are normal. Heart size is normal. Bones and chest wall: No suspicious bony abnormalities. Soft tissues appear unremarkable. IMPRESSION: No acute cardiopulmonary pathology. Dictated by: Jose Daniel Landin M.D. on 12/31/2024 at 15:12 Approved by: Jose Daniel Landin M.D. on 12/31/2024 at 15:13
== END ==
PROVIDERS: Family Provider Family Medicine; PCP Family Medicine; Referring Provider Physician Assistant; Visit Provider Physician Assistant
DX: R05.9 Cough, unspecified (principal)
CPT/HCPCS: 0241U; 71046

== ENCOUNTER → 2024-12-31 16:17 | Outpatient (CLI) | payer MEDICARE, SELFPAY ==
[2024-12-31 17:23] LABS: Influenza A - CEPHEID Flu A NEGATIVE (NEGATIVE); Influenza B - CEPHEID Flu B NEGATIVE (NEGATIVE); Respiratory Syncytial Virus Negative (Negative)
[2024-12-31 17:28] LABS: COVID-19 CEPHEID 4-PLEX PCR Negative (Negative)
== END ==
PROVIDERS: Family Provider Family Medicine; PCP Family Medicine; Visit Provider Physician Assistant
DX: R05.9 Cough, unspecified (principal)
CPT/HCPCS: 0241U

== ENCOUNTER 2025-02-16 09:00 | Outpatient (RCR) | payer MEDICARE, SELFPAY ==
--- NOTE | 2024-11-16 11:08 | PT.OIE ---
Current Diagnoses Pain in unspecified ankle and joints of unspecified foot (11/16/24) Strain of unspecified Achilles tendon, initial encounter (11/16/24) Past Medical History (Last Updated 10/27/24 @ 18:18 by Isidra Aaron) Aortic stenosis (~2023) Asthma (~1948) Colon polyps Fractures (~2015) History of kidney cancer (~1993) Hyperlipidemia Hypertension Measles (~1953) Patient denies medical problems Skin cancer Vertigo (~2018) Past Surgical History (Last Updated 11/11/24 @ 12:02 by Kristi Masters MD) Anesthesia History of kidney removal (~1993) S/P right coronary artery (RCA) stent placement (~08/14/24) Tibia/fibula fracture (~10/10/15) Visit Care Team Role Provider Type Kristi Masters MD Attending Provider Physician Family Provider Primary Care Provider Referring Provider Specialty: [facility] BISCUIT MACHINE OPERATOR Address: [address] [place] [address] Email: [email or web address] Physical Therapy Initial Evaluation PT-OP-A Visit Information Start: 11/16/24 09:38 Freq: Status: Active Protocol: Document 11/16/24 09:39 [facility] (Rec: 11/16/24 11:07 [facility] [id number]) Out-Patient Physical Therapy Visit Information Visit Information Visit Type Initial Evaluation Visit Start Time 09:45 Visit Stop Time 10:30 Visit Number 1 Number of WET PROCESS MILLER HEAD ASSISTANT Visits 0 PT-OP-B Current Condition Start: 11/16/24 09:38 Freq: Status: Active Protocol: Document 11/16/24 09:39 [facility] (Rec: 11/16/24 11:07 [facility] [id number]) Current Condition History of Current Condition Onset Date 09/18 Current Complaints R achilles tear History of Current Condition Pt was moving motor cycle onto sscenter stand and lfiting as pushing down on stand and something popped. Went to urgent care and dx w/partial tear and was instructed to call doctor and got into ortho 09/20. Did some testing on it and determined partial achilles tear and didn't give him anything. Still in a lot of pain in 2 weeks and saw them again and saw another PA and got order of MRI and US. Saw Dr. Sandoval who said can' t do anything d/t blood thinners. Has 1 wedge in shoes now. Will see her in December again. Doing cardiac rehab 3x a week and thinks may have overdone it there too. 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 Hx of tibia fibula fx w/fixation in 2016. Walks about 1 mile with dog daily right now on flat. Has to lift dog into car. Prior to this walked 4 miles a day in the [place] Prior Treatments and Tests US:IMPRESSION: Interstitial pre insertional Achilles tendon tear, superimposed on moderate tendinosis, without a full-thickness tear. MRI: IMPRESSION: 1. Moderate grade intrasubstance partial- thickness tear involving Achilles tendon approximately 6.3 cm from its insertion of posterior calcaneus with up to 1.6 cm proximal retraction of torn tendon fibers. Significant surrounding edema and fluid is seen. No definite full-thickness Achilles tendon rupture. 2. Postsurgical changes in distal tibial shaft with susceptibility artifacts. Mild midfoot and hindfoot joint osteoarthritis. No acute fracture or dislocation. No osteochondral injuries of talar dome. Small tibiotalar joint effusion, no loose bodies. 3. Extensor, flexor, and peroneus tendons are intact. 4. Low-grade sprain involving spring ligament near its distal insertion. No full-thickness ankle ligament rupture. Treatment Goals Patient/Caregiver Goals be able to walk, sailing, motorcyling, construction, skiing PT-OP-C Subjective Start: 11/16/24 09:38 Freq: Status: Active Protocol: Document 11/16/24 09:39 [facility] (Rec: 11/16/24 11:07 [facility] [id number]) Patient Questionnaires Lower Extremity Functional Scale LEFS Score 45/80 OP-PT Pain Assessment Location R achilles Pain Location Details achilles and into calf Intensity 3 Scale Used Numeric (0 - 10) Description With Movement Frequency Intermittent Pain Aggravating Factors Walking Other Pain Aggravating Factors ladder(concern) Pain Alleviating Factors Cold,Elevation PT-OP-D Balance Start: 11/16/24 09:38 Freq: Status: Active Protocol: Document 11/16/24 09:39 [facility] (Rec: 11/16/24 11:07 [facility] [id number]) Balance Tests Single Limb Standing Single Limb- Right 2 sec with significant deviation Single Limb- Left > 30sec PT-OP-F Manual Assessment Start: 11/16/24 09:38 Freq: Status: Active Protocol: Document 11/16/24 09:39 [facility] (Rec: 11/16/24 11:07 [facility] [id number]) Manual Assessments Soft Tissue Assessment Soft Tissue Mobility Assessment tighness along calf and achilles PT-OP-G Mobility & Gait Start: 11/16/24 09:38 Freq: Status: Active Protocol: Document 11/16/24 09:39 [facility] (Rec: 11/16/24 11:07 [facility] [id number]) OP Gait Assessment Comments Gait Comments dec stance time on RLE and dec push off. PT-OP-J Posture/Palpation/Skin Start: 11/16/24 09:38 Freq: Status: Active Protocol: Document 11/16/24 09:39 [facility] (Rec: 11/16/24 11:07 [facility] [id number]) Posture Evaluation Comments Posture Comments B supination, R rearfoot varus >L, ER tibia R PT-OP-K Range of Motion Start: 11/16/24 09:38 Freq: Status: Active Protocol: Document 11/16/24 09:39 [facility] (Rec: 11/16/24 11:07 [facility] [id number]) Ankle and Foot Goniometric Range of Motion Ankle and Foot Right Active Dorsiflexion with Knee Flexed 2 Dorsiflexion with Knee Extended 2 Plantarflexion 39 Inversion 20 Eversion 20 Left Active Dorsiflexion with Knee Flexed 2 Dorsiflexion with Knee Extended 10 Plantarflexion 39 Inversion 12 Eversion 18 PT-OP-M Strength Start: 11/16/24 09:38 Freq: Status: Active Protocol: Document 11/16/24 09:39 [facility] (Rec: 11/16/24 11:07 [facility] [id number]) Hip Strength Hip Manual Muscle Testing Right Flexion (L2) 3+ Fair+ Abduction 4 Good External Rotation 3+ Fair+ Internal Rotation 5 Normal Left Flexion (L2) 3+ Fair+ Abduction 4- Good- External Rotation 4- Good- Internal Rotation 5 Normal Knee Strength Knee Manual Muscle Testing Left Flexion (S2) 4+ Good+ Extension (L3) 5 Normal Right Flexion (S2) 4 Good Extension (L3) 5 Normal Ankle/Foot Strength Ankle and Foot Manual Muscle Testing Left Dorsiflexion (L4) 5 Normal Plantarflexion (S1) 5 Normal Inversion 5 Normal Eversion (S1) 5 Normal Comments 20 heel raises Right Dorsiflexion (L4) 3+ Fair+ Plantarflexion (S1) 2 Poor Inversion 3+ Fair+ Eversion (S1) 4- Good- Toe Strength Toe Manual Muscle Testing Right 2nd Toe Flexion 4+ Good+ Extension 4+ Good+ Comments 2-5 Right Great Toe Flexion 4+ Good+ Extension 4+ Good+ Left 2nd Toe Flexion 4+ Good+ Extension 4+ Good+ Comments 2-5 Left Great Toe Flexion 4+ Good+ Extension 4+ Good+ PT-OP-Q Treatments Start: 11/16/24 09:38 Freq: Status: Active Protocol: Document 11/16/24 09:39 [facility] (Rec: 11/16/24 11:07 [facility] [id number]) Therapeutic Exercises Sitting Exercises ankle 4 way Sitting Exercise Name inversion, eversion, DF, PF Side right Equipment Used L1 Reps/Minutes 15 ea Comments cues slow eccentric Standing Exercises heel raises Standing Exercise Name DL slow control down Side bilateral Reps/Minutes 15 Neuro Re-Education Treatment Balance Activities tandem Details B stance Self-Care/Home Management Treatment Education Other Education 8 min: edu re: not inc pain and starting slow d/t tendon tears taking longer to heal than fx and importance of slow progression in order to avoid further injury and allow healing. Edu on importance of balance for progressive stability for boat, skiing etc PT-OP-T Assessment and Plan Start: 11/16/24 09:38 Freq: Status: Active Protocol: Document 11/16/24 09:39 [facility] (Rec: 11/16/24 11:07 [facility] [id number]) Physical Therapy Assessment Rehab Potential Rehabilitation Potential Good Evaluation Complexity Number of Personal Factors/Comorbidities 3 or More Number of Body Systems Impaired 4 or More Clinical Presentation at Evaluation Evolving Impairments Impairments Activity Tolerance,Balance, Edema,Functional Activities, Functional Mobility,Gait,Pain, Posture,ROM,Soft Tissue Mobility,Strength Goals strength Short Term Goal (STG) Pt will be indep w/HEP STG Duration / Professor Of Social Work Goal (LTG) Pt will score at least 4+/5 on all BLE MMT to show improved stability to allow return to full activity. LTG Duration 5 ROM Fci Goal (LTG) Pt will have DF to at least 5 deg in knee ext position and at least 10 deg in knee flex position to allow ability to do typical activities like stairs and ladders w/o inc pain LTG Duration 01/25 balance Short Term Goal (STG) Pt will improve RLE SLS to at least 10 sec to show improved balance. STG Duration / Fci Goal (LTG) Pt will improve RLE SLS to at least 20 sec to show improved balance. 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 LTG Duration 01/25 Assessment Summary Assessment Pt presents 2 months after R achilles partial tear w/ conservative care. He is wearing a wedge in shoe but presents w/only minor limitations in DF and overall otherwise good ROM, but significant weakness and dec balance on RLE. Pt is very active (works construction, hikes, skiis, and sails) typically and is limited to 1 mile walks on flat ground at this tiem and not participating in the other activities. He would benefit from skilled PT to address these deficits and return pt to full funciton without inc pain. Physical Therapy Plan Frequency and Duration Frequency of Treatment 2x/Week Duration of treatment (weeks) 10 Plan of Care Start Date 11/16/24 Plan of Care End Date 01/25/25 Therapeutic Interventions Therapeutic Interventions Balance Training,Gait Training ,Home Exercise Program,Joint Mobilizations,Manual Therapy, Neuromuscular Re-education, Patient/Caregiver Education, Self-Care/Home Management,Soft Tissue Mobilization,Taping, Therapeutic Activities, Therapeutic Exercises Modalities Cold Pack/Ice Massage,Hot Packs,Infrared Therapy, Ultrasound Next Visit Focus/Plan Next Note Type Treatment Note Next Visit Plan review exercises and advance as able; careful to avoid significant achilles stretching (avoid calf stretching until 12/12) manual to calf and foot and ankle; shuttle balance, tandem and SL balance tasks, avoid pain w/activity slowly dec wedge in shoe
--- NOTE | 2024-11-16 11:08 | PT.OPPOC ---
Physical, Occupational & Speech Therapy At [facility] Current Diagnoses Pain in unspecified ankle and joints of unspecified foot (11/16/24) Strain of unspecified Achilles tendon, initial encounter (11/16/24) Visit Care Team Role Provider Type Kristi Masters MD Attending Provider Physician Family Provider Primary Care Provider Referring Provider Specialty: Family Practice PARALEGAL SPECIALIST Address: [address] [place] [address], [id number] Email: [email or web address] Plan Of Care PT-OP-B Current Condition Start: 11/16/24 09:38 Freq: Status: Active Protocol: Document 11/16/24 09:39 [facility] (Rec: 11/16/24 11:07 [facility] [id number]) Current Condition History of Current Condition Onset Date 09/18 Current Complaints R achilles tear History of Current Condition Pt was moving motor cycle onto sscenter stand and lfiting as pushing down on stand and something popped. Went to urgent care and dx w/partial tear and was instructed to call doctor and got into ortho 09/20. Did some testing on it and determined partial achilles tear and didn't give him anything. Still in a lot of pain in 2 weeks and saw them again and saw another PA and got order of MRI and US. Saw Dr. Sandoval who said can' t do anything d/t blood thinners. Has 1 wedge in shoes now. Will see her in December again. Doing cardiac rehab 3x a week and thinks may have overdone it there too. 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 Hx of tibia fibula fx w/fixation in 2016. Walks about 1 mile with dog daily right now on flat. Has to lift dog into car. Prior to this walked 4 miles a day in the forest Prior Treatments and Tests US:IMPRESSION: Interstitial pre insertional Achilles tendon tear, superimposed on moderate tendinosis, without a full-thickness tear. MRI: IMPRESSION: 1. Moderate grade intrasubstance partial- thickness tear involving Achilles tendon approximately 6.3 cm from its insertion of posterior calcaneus with up to 1.6 cm proximal retraction of torn tendon fibers. Significant surrounding edema and fluid is seen. No definite full-thickness Achilles tendon rupture. 2. Postsurgical changes in distal tibial shaft with susceptibility artifacts. Mild midfoot and hindfoot joint osteoarthritis. No acute fracture or dislocation. No osteochondral injuries of talar dome. Small tibiotalar joint effusion, no loose bodies. 3. Extensor, flexor, and peroneus tendons are intact. 4. Low-grade sprain involving spring ligament near its distal insertion. No full-thickness ankle ligament rupture. Treatment Goals Patient/Caregiver Goals be able to walk, sailing, motorcyling, construction, skiing PT-OP-T Assessment and Plan Start: 11/16/24 09:38 Freq: Status: Active Protocol: Document 11/16/24 09:39 [facility] (Rec: 11/16/24 11:07 [facility] [id number]) Physical Therapy Assessment Rehab Potential Rehabilitation Potential Good Evaluation Complexity Number of Personal Factors/Comorbidities 3 or More Number of Body Systems Impaired 4 or More Clinical Presentation at Evaluation Evolving Impairments Impairments Activity Tolerance,Balance, Edema,Functional Activities, Functional Mobility,Gait,Pain, Posture,ROM,Soft Tissue Mobility,Strength Goals strength Short Term Goal (STG) Pt will be indep w/HEP STG Duration 4/ Floor Attendant Goal (LTG) Pt will score at least 4+/5 on all BLE MMT to show improved stability to allow return to full activity. LTG Duration 5/ ROM Floor Attendant Goal (LTG) Pt will have DF to at least 5 deg in knee ext position and at least 10 deg in knee flex position to allow ability to do typical activities like stairs and ladders w/o inc pain LTG Duration 5/7 balance Short Term Goal (STG) Pt will improve RLE SLS to at least 10 sec to show improved balance. STG Duration 4/1 Retirement Goal (LTG) Pt will improve RLE SLS to at least 20 sec to show improved balance. 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 LTG Duration 5 Assessment Summary Assessment Pt presents 2 months after R achilles partial tear w/ conservative care. He is wearing a wedge in shoe but presents w/only minor limitations in DF and overall otherwise good ROM, but significant weakness and dec balance on RLE. Pt is very active (works construction, hikes, skiis, and sails) typically and is limited to 1 mile walks on flat ground at this tiem and not participating in the other activities. He would benefit from skilled PT to address these deficits and return pt to full funciton without inc pain. Physical Therapy Plan Frequency and Duration Frequency of Treatment 2x/Week Duration of treatment (weeks) 10 Plan of Care Start Date 11/16/24 Plan of Care End Date 01/25/25 Therapeutic Interventions Therapeutic Interventions Balance Training,Gait Training ,Home Exercise Program,Joint Mobilizations,Manual Therapy, Neuromuscular Re-education, Patient/Caregiver Education, Self-Care/Home Management,Soft Tissue Mobilization,Taping, Therapeutic Activities, Therapeutic Exercises Modalities Cold Pack/Ice Massage,Hot Packs,Infrared Therapy, Ultrasound Next Visit Focus/Plan Next Note Type Treatment Note Next Visit Plan review exercises and advance as able; careful to avoid significant achilles stretching (avoid calf stretching until 12/12) manual to calf and foot and ankle; shuttle balance, tandem and SL balance tasks, avoid pain w/activity slowly dec wedge in shoe Plan of Care Dates Plan of Care Start Date 11/16/24 Plan of Care End Date 01/25/25 Electronically Signed by: Vaishnavi Reza, PT 11/16/24 [id number] If you are in agreement with this Plan of Care, please return a signed and dated copy. I have reviewed this Plan of Care and certify that the skilled therapy services above are required to meet the patient?s needs. Physician Signature Date Printed Name and Credentials Clinical Instructor Signature Printed Name and Credentials
--- NOTE | 2024-11-21 13:48 | PT.OTN ---
Current Diagnoses Pain in unspecified ankle and joints of unspecified foot (11/21/24) Strain of unspecified Achilles tendon, initial encounter (11/21/24) Physical Therapy Treatment Note PT-OP-A Visit Information Start: 11/16/24 09:38 Freq: Status: Active Protocol: Document 11/21/24 13:02 [facility] (Rec: 11/21/24 13:48 [facility] [id number]) Out-Patient Physical Therapy Visit Information Visit Information Visit Type Treatment Note Visit Start Time 13:03 Visit Stop Time 13:43 Visit Number 2 Number of [employer] RADIO TECHNICIAN Visits 0 PT-OP-B Current Condition Start: 11/16/24 09:38 Freq: Status: Active Protocol: Document 11/16/24 09:39 [facility] (Rec: 11/16/24 11:07 [facility] [id number]) Current Condition History of Current Condition Onset Date 09/18 Current Complaints R achilles tear History of Current Condition Pt was moving motor cycle onto sscenter stand and lfiting as pushing down on stand and something popped. Went to urgent care and dx w/partial tear and was instructed to call doctor and got into ortho 09/20. Did some testing on it and determined partial achilles tear and didn't give him anything. Still in a lot of pain in 2 weeks and saw them again and saw another PA and got order of MRI and US. Saw Dr. Sandoval who said can' t do anything d/t blood thinners. Has 1 wedge in shoes now. Will see her in December again. Doing cardiac rehab 3x a week and thinks may have overdone it there too. 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 Hx of tibia fibula fx w/fixation in 2015. Walks about 1 mile with dog daily right now on flat. Has to lift dog into car. Prior to this walked 4 miles a day in the [place] Prior Treatments and Tests US:IMPRESSION: Interstitial pre insertional Achilles tendon tear, superimposed on moderate tendinosis, without a full-thickness tear. MRI: IMPRESSION: 1. Moderate grade intrasubstance partial- thickness tear involving Achilles tendon approximately 6.3 cm from its insertion of posterior calcaneus with up to 1.6 cm proximal retraction of torn tendon fibers. Significant surrounding edema and fluid is seen. No definite full-thickness Achilles tendon rupture. 2. Postsurgical changes in distal tibial shaft with susceptibility artifacts. Mild midfoot and hindfoot joint osteoarthritis. No acute fracture or dislocation. No osteochondral injuries of talar dome. Small tibiotalar joint effusion, no loose bodies. 3. Extensor, flexor, and peroneus tendons are intact. 4. Low-grade sprain involving spring ligament near its distal insertion. No full-thickness ankle ligament rupture. Treatment Goals Patient/Caregiver Goals be able to walk, sailing, motorcyling, construction, skiing PT-OP-C Subjective Start: 11/16/24 09:38 Freq: Status: Active Protocol: Document 11/21/24 13:02 [facility] (Rec: 11/21/24 13:48 [facility] [id number]) OP-PT Subjective Patient Comments Patient Comments pt reports no pain. Has done tandme balance but not much of other exercises PT-OP-D Balance Start: 11/16/24 09:38 Freq: Status: Active Protocol: Document 11/16/24 09:39 [facility] (Rec: 11/16/24 11:07 [facility] [id number]) Balance Tests Single Limb Standing Single Limb- Right 2 sec with significant deviation Single Limb- Left > 30sec PT-OP-F Manual Assessment Start: 11/16/24 09:38 Freq: Status: Active Protocol: Document 11/16/24 09:39 [facility] (Rec: 11/16/24 11:07 [facility] [id number]) Manual Assessments Soft Tissue Assessment Soft Tissue Mobility Assessment tighness along calf and achilles PT-OP-G Mobility & Gait Start: 11/16/24 09:38 Freq: Status: Active Protocol: Document 11/16/24 09:39 [facility] (Rec: 11/16/24 11:07 [facility] [id number]) OP Gait Assessment Comments Gait Comments dec stance time on RLE and dec push off. PT-OP-J Posture/Palpation/Skin Start: 11/16/24 09:38 Freq: Status: Active Protocol: Document 11/16/24 09:39 [facility] (Rec: 11/16/24 11:07 [facility] [id number]) Posture Evaluation Comments Posture Comments B supination, R rearfoot varus >L, ER tibia R PT-OP-K Range of Motion Start: 11/16/24 09:38 Freq: Status: Active Protocol: Document 11/16/24 09:39 [facility] (Rec: 11/16/24 11:07 [facility] [id number]) Ankle and Foot Goniometric Range of Motion Ankle and Foot Right Active Dorsiflexion with Knee Flexed 2 Dorsiflexion with Knee Extended 2 Plantarflexion 39 Inversion 20 Eversion 20 Left Active Dorsiflexion with Knee Flexed 2 Dorsiflexion with Knee Extended 10 Plantarflexion 39 Inversion 12 Eversion 18 PT-OP-M Strength Start: 11/16/24 09:38 Freq: Status: Active Protocol: Document 11/16/24 09:39 [facility] (Rec: 11/16/24 11:07 [facility] [id number]) Hip Strength Hip Manual Muscle Testing Right Flexion (L2) 3+ Fair+ Abduction 4 Good External Rotation 3+ Fair+ Internal Rotation 5 Normal Left Flexion (L2) 3+ Fair+ Abduction 4- Good- External Rotation 4- Good- Internal Rotation 5 Normal Knee Strength Knee Manual Muscle Testing Left Flexion (S2) 4+ Good+ Extension (L3) 5 Normal Right Flexion (S2) 4 Good Extension (L3) 5 Normal Ankle/Foot Strength Ankle and Foot Manual Muscle Testing Left Dorsiflexion (L4) 5 Normal Plantarflexion (S1) 5 Normal Inversion 5 Normal Eversion (S1) 5 Normal Comments 20 heel raises Right Dorsiflexion (L4) 3+ Fair+ Plantarflexion (S1) 2 Poor Inversion 3+ Fair+ Eversion (S1) 4- Good- Toe Strength Toe Manual Muscle Testing Right 2nd Toe Flexion 4+ Good+ Extension 4+ Good+ Comments 2-5 Right Great Toe Flexion 4+ Good+ Extension 4+ Good+ Left 2nd Toe Flexion 4+ Good+ Extension 4+ Good+ Comments 2-5 Left Great Toe Flexion 4+ Good+ Extension 4+ Good+ PT-OP-Q Treatments Start: 11/16/24 09:38 Freq: Status: Active Protocol: Document 11/21/24 13:02 [facility] (Rec: 11/21/24 13:48 [facility] [id number]) Gym Equipment Shuttle Balance red clips Comments fwd & side: WBOS and NBOS fwd: staggered stance B Therapeutic Exercises Sitting Exercises ankle 4 way Sitting Exercise Name inversion, eversion, DF Side right Equipment Used L1 Reps/Minutes 15 ea Comments cues slow eccentric Standing Exercises heel raises Standing Exercise Name DL slow control down Side bilateral Reps/Minutes 15 Manual Therapy Treatment Consent Patient gave verbal consent for manual Yes treatment Soft Tissue Mobilization calf\ Body Location R gastroc, solues, achilles Mobilization Type Rolling Intensity/Depth Moderate Body Position Prone Neuro Re-Education Treatment Balance Activities SL Comments 1. mod w/LLE on dynadisc 2. mod w/LLE on ball tandem Details rail prn Comments 1. B stance 2. fwd walk 15ft x2 PT-OP-T Assessment and Plan Start: 11/16/24 09:38 Freq: Status: Active Protocol: Document 11/21/24 13:02 [facility] (Rec: 11/21/24 13:48 [facility] [id number]) Physical Therapy Assessment Goals strength Short Term Goal (STG) Pt will be indep w/HEP STG Duration 4/ Preparation Room Manager Goal (LTG) Pt will score at least 4+/5 on all BLE MMT to show improved stability to allow return to full activity. LTG Duration 5/ ROM Preparation Room Manager Goal (LTG) Pt will have DF to at least 5 deg in knee ext position and at least 10 deg in knee flex position to allow ability to do typical activities like stairs and ladders w/o inc pain LTG Duration 5/7 balance Short Term Goal (STG) Pt will improve RLE SLS to at least 10 sec to show improved balance. STG Duration 4/1 Preparation Room Manager Goal (LTG) Pt will improve RLE SLS to at least 20 sec to show improved balance. 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 LTG Duration 5/7 Assessment Summary Assessment Pt did well with exercises today but did require some cues w/exercises. was cahllenged by balance activities. Physical Therapy Plan Frequency and Duration Frequency of Treatment 2x/Week Duration of treatment (weeks) 10 Plan of Care Start Date 11/16/24 Plan of Care End Date 01/25/25 Next Visit Focus/Plan Next Note Type Treatment Note Next Visit Plan review exercises and advance as able; careful to avoid significant achilles stretching (avoid calf stretching until 12/12) manual to calf and foot and ankle; shuttle balance, tandem and SL balance tasks, avoid pain w/activity slowly dec wedge in shoe
--- NOTE | 2024-11-28 15:04 | PT.OTN ---
Current Diagnoses Pain in unspecified ankle and joints of unspecified foot (11/28/24) Strain of unspecified Achilles tendon, initial encounter (11/28/24) Physical Therapy Treatment Note PT-OP-A Visit Information Start: 11/16/24 09:38 Freq: Status: Active Protocol: Document 11/28/24 13:02 [facility] (Rec: 11/28/24 15:04 [facility] [id number]) Out-Patient Physical Therapy Visit Information Visit Information Visit Type Treatment Note Visit Start Time 13:04 Visit Stop Time 13:44 Visit Number 3 Number of [employer] B[employer]ER Visits 0 PT-OP-B Current Condition Start: 11/16/24 09:38 Freq: Status: Active Protocol: Document 11/16/24 09:39 [facility] (Rec: 11/16/24 11:07 [facility] [id number]) Current Condition History of Current Condition Onset Date 09/18 Current Complaints R achilles tear History of Current Condition Pt was moving motor cycle onto sscenter stand and lfiting as pushing down on stand and something popped. Went to urgent care and dx w/partial tear and was instructed to call doctor and got into ortho 09/20. Did some testing on it and determined partial achilles tear and didn't give him anything. Still in a lot of pain in 2 weeks and saw them again and saw another PA and got order of MRI and US. Saw Dr. Sandoval who said can' t do anything d/t blood thinners. Has 1 wedge in shoes now. Will see her in December again. Doing cardiac rehab 3x a week and thinks may have overdone it there too. 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 Hx of tibia fibula fx w/fixation in 2015. Walks about 1 mile with dog daily right now on flat. Has to lift dog into car. Prior to this walked 4 miles a day in the [place] Prior Treatments and Tests US:IMPRESSION: Interstitial pre insertional Achilles tendon tear, superimposed on moderate tendinosis, without a full-thickness tear. MRI: IMPRESSION: 1. Moderate grade intrasubstance partial- thickness tear involving Achilles tendon approximately 6.3 cm from its insertion of posterior calcaneus with up to 1.6 cm proximal retraction of torn tendon fibers. Significant surrounding edema and fluid is seen. No definite full-thickness Achilles tendon rupture. 2. Postsurgical changes in distal tibial shaft with susceptibility artifacts. Mild midfoot and hindfoot joint osteoarthritis. No acute fracture or dislocation. No osteochondral injuries of talar dome. Small tibiotalar joint effusion, no loose bodies. 3. Extensor, flexor, and peroneus tendons are intact. 4. Low-grade sprain involving spring ligament near its distal insertion. No full-thickness ankle ligament rupture. Treatment Goals Patient/Caregiver Goals be able to walk, sailing, motorcyling, construction, skiing PT-OP-C Subjective Start: 11/16/24 09:38 Freq: Status: Active Protocol: Document 11/28/24 13:02 [facility] (Rec: 11/28/24 15:04 [facility] [id number]) OP-PT Subjective Patient Comments Patient Comments Took one layer of wedge out of shoe and it has felt fine. Can go for 1 mile on treadmill before big toe pain, achiles discomfort and hip pain PT-OP-D Balance Start: 11/16/24 09:38 Freq: Status: Active Protocol: Document 11/16/24 09:39 [facility] (Rec: 11/16/24 11:07 [facility] [id number]) Balance Tests Single Limb Standing Single Limb- Right 2 sec with significant deviation Single Limb- Left > 30sec PT-OP-F Manual Assessment Start: 11/16/24 09:38 Freq: Status: Active Protocol: Document 11/16/24 09:39 [facility] (Rec: 11/16/24 11:07 [facility] [id number]) Manual Assessments Soft Tissue Assessment Soft Tissue Mobility Assessment tighness along calf and achilles PT-OP-G Mobility & Gait Start: 11/16/24 09:38 Freq: Status: Active Protocol: Document 11/16/24 09:39 [facility] (Rec: 11/16/24 11:07 [facility] [id number]) OP Gait Assessment Comments Gait Comments dec stance time on RLE and dec push off. PT-OP-J Posture/Palpation/Skin Start: 11/16/24 09:38 Freq: Status: Active Protocol: Document 11/16/24 09:39 [facility] (Rec: 11/16/24 11:07 [facility] [id number]) Posture Evaluation Comments Posture Comments B supination, R rearfoot varus >L, ER tibia R PT-OP-K Range of Motion Start: 11/16/24 09:38 Freq: Status: Active Protocol: Document 11/16/24 09:39 [facility] (Rec: 11/16/24 11:07 [facility] [id number]) Ankle and Foot Goniometric Range of Motion Ankle and Foot Right Active Dorsiflexion with Knee Flexed 2 Dorsiflexion with Knee Extended 2 Plantarflexion 39 Inversion 20 Eversion 20 Left Active Dorsiflexion with Knee Flexed 2 Dorsiflexion with Knee Extended 10 Plantarflexion 39 Inversion 12 Eversion 18 PT-OP-M Strength Start: 11/16/24 09:38 Freq: Status: Active Protocol: Document 11/16/24 09:39 [facility] (Rec: 11/16/24 11:07 [facility] [id number]) Hip Strength Hip Manual Muscle Testing Right Flexion (L2) 3+ Fair+ Abduction 4 Good External Rotation 3+ Fair+ Internal Rotation 5 Normal Left Flexion (L2) 3+ Fair+ Abduction 4- Good- External Rotation 4- Good- Internal Rotation 5 Normal Knee Strength Knee Manual Muscle Testing Left Flexion (S2) 4+ Good+ Extension (L3) 5 Normal Right Flexion (S2) 4 Good Extension (L3) 5 Normal Ankle/Foot Strength Ankle and Foot Manual Muscle Testing Left Dorsiflexion (L4) 5 Normal Plantarflexion (S1) 5 Normal Inversion 5 Normal Eversion (S1) 5 Normal Comments 20 heel raises Right Dorsiflexion (L4) 3+ Fair+ Plantarflexion (S1) 2 Poor Inversion 3+ Fair+ Eversion (S1) 4- Good- Toe Strength Toe Manual Muscle Testing Right 2nd Toe Flexion 4+ Good+ Extension 4+ Good+ Comments 2-5 Right Great Toe Flexion 4+ Good+ Extension 4+ Good+ Left 2nd Toe Flexion 4+ Good+ Extension 4+ Good+ Comments 2-5 Left Great Toe Flexion 4+ Good+ Extension 4+ Good+ PT-OP-Q Treatments Start: 11/16/24 09:38 Freq: Status: Active Protocol: Document 11/28/24 13:02 [facility] (Rec: 11/28/24 15:04 [facility] [id number]) Gym Equipment Shuttle Balance red clips Details head turns w/fwd WBOS and NBOS Comments fwd & side: WBOS and NBOS fwd: staggered stance B Therapeutic Exercises Sitting Exercises ankle 4 way Sitting Exercise Name inversion, eversion, DF Side right Equipment Used L2 Reps/Minutes 15 ea Comments cues no knee movement w/ eversion Standing Exercises DF Standing Exercise Name back at wall and feet away from wall DL Side bilateral Reps/Minutes 15 Comments comfortable range clamshells Standing Exercise Name 1 foot on wall hands on wall Side bilateral Equipment Used L1 at knees Reps/Minutes 15 ea Comments cues for posture squat Standing Exercise Name tap chair Side bilateral Reps/Minutes 10 sidesteps Side bilateral Equipment Used L1 on foot Reps/Minutes 16ft ea Comments cues control and inc ROM heel raises Standing Exercise Name DL slow control down-cues inc wt on RLE Side bilateral Reps/Minutes 15 Manual Therapy Treatment Consent Patient gave verbal consent for manual Yes treatment Soft Tissue Mobilization calf\ Body Location R gastroc, solues, achilles Mobilization Type Rolling Intensity/Depth Moderate Body Position Prone Neuro Re-Education Treatment Balance Activities SL Comments 1. mod w/LLE on dynadisc 2. mod w/LLE on ball 3.SLS trial B tandem Comments 1. fwd walk 15ft x2 2. semi tandem blue foam B trials PT-OP-T Assessment and Plan Start: 11/16/24 09:38 Freq: Status: Active Protocol: Document 11/28/24 13:02 [facility] (Rec: 11/28/24 15:04 [facility] [id number]) Physical Therapy Assessment Goals strength Short Term Goal (STG) Pt will be indep w/HEP STG Duration 4/ Half-Way Goal (LTG) Pt will score at least 4+/5 on all BLE MMT to show improved stability to allow return to full activity. LTG Duration 5/ ROM Half-Way Goal (LTG) Pt will have DF to at least 5 deg in knee ext position and at least 10 deg in knee flex position to allow ability to do typical activities like stairs and ladders w/o inc pain LTG Duration 5/7 balance Short Term Goal (STG) Pt will improve RLE SLS to at least 10 sec to show improved balance. STG Duration 4/1 Half-Way Goal (LTG) Pt will improve RLE SLS to at least 20 sec to show improved balance. 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 LTG Duration 01/25 Assessment Summary Assessment Pt was able to progress w/ balance today and had less difficulty w/unstable surfaces . Improving strength overall. Physical Therapy Plan Frequency and Duration Frequency of Treatment 2x/Week Duration of treatment (weeks) 10 Plan of Care Start Date 11/16/24 Plan of Care End Date 01/25/25 Next Visit Focus/Plan Next Note Type Treatment Note Next Visit Plan review exercises and advance as able; careful to avoid significant achilles stretching (avoid calf stretching until 12/12) manual to calf and foot and ankle; shuttle balance, tandem and SL balance tasks, avoid pain w/activity slowly dec wedge in shoe
--- NOTE | 2024-12-06 09:46 | PT.OTN ---
Current Diagnoses Pain in unspecified ankle and joints of unspecified foot (12/06/24) Strain of unspecified Achilles tendon, initial encounter (12/06/24) Physical Therapy Treatment Note PT-OP-A Visit Information Start: 11/16/24 09:38 Freq: Status: Active Protocol: Document 12/06/24 09:00 [facility] (Rec: 12/06/24 09:45 [facility] [id number]) Out-Patient Physical Therapy Visit Information Visit Information Visit Type Treatment Note Visit Start Time 09:06 Visit Stop Time 09:45 Visit Number 4 PT-OP-B Current Condition Start: 11/16/24 09:38 Freq: Status: Active Protocol: Document 11/16/24 09:39 [facility] (Rec: 11/16/24 11:07 [facility] [id number]) Current Condition History of Current Condition Onset Date 09/18 Current Complaints R achilles tear History of Current Condition Pt was moving motor cycle onto sscenter stand and lfiting as pushing down on stand and something popped. Went to urgent care and dx w/partial tear and was instructed to call doctor and got into ortho 09/20. Did some testing on it and determined partial achilles tear and didn't give him anything. Still in a lot of pain in 2 weeks and saw them again and saw another PA and got order of MRI and US. Saw Dr. Sandoval who said can' t do anything d/t blood thinners. Has 1 wedge in shoes now. Will see her in December again. Doing cardiac rehab 3x a week and thinks may have overdone it there too. 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 Hx of tibia fibula fx w/fixation in 2015. Walks about 1 mile with dog daily right now on flat. Has to lift dog into car. Prior to this walked 4 miles a day in the [place] Prior Treatments and Tests US:IMPRESSION: Interstitial pre insertional Achilles tendon tear, superimposed on moderate tendinosis, without a full-thickness tear. MRI: IMPRESSION: 1. Moderate grade intrasubstance partial- thickness tear involving Achilles tendon approximately 6.3 cm from its insertion of posterior calcaneus with up to 1.6 cm proximal retraction of torn tendon fibers. Significant surrounding edema and fluid is seen. No definite full-thickness Achilles tendon rupture. 2. Postsurgical changes in distal tibial shaft with susceptibility artifacts. Mild midfoot and hindfoot joint osteoarthritis. No acute fracture or dislocation. No osteochondral injuries of talar dome. Small tibiotalar joint effusion, no loose bodies. 3. Extensor, flexor, and peroneus tendons are intact. 4. Low-grade sprain involving spring ligament near its distal insertion. No full-thickness ankle ligament rupture. Treatment Goals Patient/Caregiver Goals be able to walk, sailing, motorcyling, construction, skiing PT-OP-C Subjective Start: 11/16/24 09:38 Freq: Status: Active Protocol: Document 12/06/24 09:00 [facility] (Rec: 12/06/24 09:45 [facility] [id number]) OP-PT Subjective Patient Comments Patient Comments Pt reports still stops at a mile and hip is sore . hasn't had a lot of time to progress walking distance PT-OP-D Balance Start: 11/16/24 09:38 Freq: Status: Active Protocol: Document 12/06/24 09:00 [facility] (Rec: 12/06/24 09:45 [facility] [id number]) Balance Tests Single Limb Standing Single Limb- Right 15 sec PT-OP-F Manual Assessment Start: 11/16/24 09:38 Freq: Status: Active Protocol: Document 11/16/24 09:39 [facility] (Rec: 11/16/24 11:07 [facility] [id number]) Manual Assessments Soft Tissue Assessment Soft Tissue Mobility Assessment tighness along calf and achilles PT-OP-G Mobility & Gait Start: 11/16/24 09:38 Freq: Status: Active Protocol: Document 11/16/24 09:39 [facility] (Rec: 11/16/24 11:07 [facility] [id number]) OP Gait Assessment Comments Gait Comments dec stance time on RLE and dec push off. PT-OP-J Posture/Palpation/Skin Start: 11/16/24 09:38 Freq: Status: Active Protocol: Document 11/16/24 09:39 [facility] (Rec: 11/16/24 11:07 [facility] [id number]) Posture Evaluation Comments Posture Comments B supination, R rearfoot varus >L, ER tibia R PT-OP-K Range of Motion Start: 11/16/24 09:38 Freq: Status: Active Protocol: Document 12/06/24 09:00 [facility] (Rec: 12/06/24 09:45 [facility] [id number]) Ankle and Foot Goniometric Range of Motion Ankle and Foot Right Active Dorsiflexion with Knee Flexed 8 Dorsiflexion with Knee Extended 5 Plantarflexion 40 Inversion 30 Eversion 20 PT-OP-M Strength Start: 11/16/24 09:38 Freq: Status: Active Protocol: Document 12/06/24 09:00 [facility] (Rec: 12/06/24 09:45 [facility] [id number]) Hip Strength Hip Manual Muscle Testing Right Flexion (L2) 4 Good Extension (S1) 3+ Fair+ Abduction 4- Good- External Rotation 4+ Good+ Internal Rotation 5 Normal Left Flexion (L2) 4 Good Extension (S1) 3+ Fair+ Abduction 4 Good External Rotation 4+ Good+ Internal Rotation 5 Normal Knee Strength Knee Manual Muscle Testing Left Flexion (S2) 4+ Good+ Extension (L3) 5 Normal Right Flexion (S2) 4+ Good+ Extension (L3) 5 Normal Ankle/Foot Strength Ankle and Foot Manual Muscle Testing Left Dorsiflexion (L4) 5 Normal Plantarflexion (S1) 5 Normal Inversion 5 Normal Eversion (S1) 5 Normal Comments 20 heel raises Right Dorsiflexion (L4) 4+ Good+ Plantarflexion (S1) 2+ Poor+ Inversion 4+ Good+ Eversion (S1) 4+ Good+ Comments unable to do SL heel raise Toe Strength Toe Manual Muscle Testing Right 2nd Toe Flexion 4+ Good+ Extension 5 Normal Comments 2-5 Right Great Toe Flexion 5 Normal Extension 4+ Good+ PT-OP-Q Treatments Start: 11/16/24 09:38 Freq: Status: Active Protocol: Document 12/06/24 09:00 [facility] (Rec: 12/06/24 09:45 [facility] [id number]) Gym Equipment Shuttle Balance red clips Details head turns Comments fwd & side: WBOS and NBOS fwd: staggered stance B Therapeutic Exercises Standing Exercises clamshells Standing Exercise Name 1 foot on wall hands on wall Side bilateral Equipment Used L2 at knees Reps/Minutes 15 ea Comments cues for posture squat Standing Exercise Name tap chair Side bilateral Reps/Minutes 10 sidesteps Side bilateral Equipment Used L2 on foot Reps/Minutes 16ft ea Comments cues for band tighter at start heel raises Standing Exercise Name DL slow control down-cues inc wt on RLE Side bilateral Reps/Minutes 10 Manual Therapy Treatment Consent Patient gave verbal consent for manual Yes treatment Joint Mobilizations innominate Comments L caudal supine c/r hip Comments R IR lat gapping and inf glide c/r Neuro Re-Education Treatment Balance Activities SL Comments B trials PT-OP-T Assessment and Plan Start: 11/16/24 09:38 Freq: Status: Active Protocol: Document 12/06/24 09:00 [facility] (Rec: 12/06/24 09:45 [facility] [id number]) Physical Therapy Assessment Goals strength Short Term Goal (STG) Pt will be indep w/HEP STG Duration achieved advancing as able Retirement Goal (LTG) Pt will score at least 4+/5 on all BLE MMT to show improved stability to allow return to full activity. 12/06-improved LTG Duration 01/19 ROM Retirement Goal (LTG) Pt will have DF to at least 5 deg in knee ext position and at least 10 deg in knee flex position to allow ability to do typical activities like stairs and ladders w/o inc pain 12/06-5 deg in ext achieved, 8 deg now in knee flex position LTG Duration 01/25 balance Short Term Goal (STG) Pt will improve RLE SLS to at least 10 sec to show improved balance. STG Duration achieved to 15 sec Merchant Banker Goal (LTG) Pt will improve RLE SLS to at least 20 sec to show improved balance. 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 12/06-has not tried construction work, walking about 1 mile, limited by hip, has not been on boat yet LTG Duration 01/25 Assessment Summary Assessment Pt making excellent progress w /PT with much improved ROM, dec pain and improved strength . Still limited calf strength and hip strength relating to gait deviations. worked on hip some today to improve movement mechanics of gait and mobility. Cont PT for strength and balance and return to normal function. Physical Therapy Plan Frequency and Duration Frequency of Treatment 2x/Week Duration of treatment (weeks) 10 Plan of Care Start Date 11/16/24 Plan of Care End Date 01/25/25 Therapeutic Interventions Therapeutic Interventions Balance Training,Gait Training ,Home Exercise Program,Joint Mobilizations,Manual Therapy, Neuromuscular Re-education, Patient/Caregiver Education, Self-Care/Home Management,Soft Tissue Mobilization,Taping, Therapeutic Activities, Therapeutic Exercises Modalities Cold Pack/Ice Massage,Hot Packs,Infrared Therapy, Ultrasound Next Visit Focus/Plan Next Note Type Treatment Note Next Visit Plan review exercises and advance as able; only gentle calf stretch manual to calf and foot and ankle; shuttle balance, tandem and SL balance tasks, avoid pain w/activity slowly dec wedge in shoe (take away one layer a week provided no pain w/last week's dec)
--- NOTE | 2024-12-13 11:26 | PT.OTN ---
Current Diagnoses Pain in unspecified ankle and joints of unspecified foot (12/13/24) Strain of unspecified Achilles tendon, initial encounter (12/13/24) Physical Therapy Treatment Note PT-OP-A Visit Information Start: 11/16/24 09:38 Freq: Status: Active Protocol: Document 12/13/24 10:46 [facility] (Rec: 12/13/24 11:31 [facility] [id number]) Out-Patient Physical Therapy Visit Information Visit Information Visit Type Treatment Note Visit Start Time 10:46 Visit Stop Time 11:26 Visit Number 5 Number of SENIOR INFORMATION SECURITY ARCHITECT Visits 1 PT-OP-B Current Condition Start: 11/16/24 09:38 Freq: Status: Active Protocol: Document 11/16/24 09:39 [facility] (Rec: 11/16/24 11:07 [facility] [id number]) Current Condition History of Current Condition Onset Date 09/18 Current Complaints R achilles tear History of Current Condition Pt was moving motor cycle onto sscenter stand and lfiting as pushing down on stand and something popped. Went to urgent care and dx w/partial tear and was instructed to call doctor and got into ortho 09/20. Did some testing on it and determined partial achilles tear and didn't give him anything. Still in a lot of pain in 2 weeks and saw them again and saw another PA and got order of MRI and US. Saw Dr. Sandoval who said can' t do anything d/t blood thinners. Has 1 wedge in shoes now. Will see her in December again. Doing cardiac rehab 3x a week and thinks may have overdone it there too. 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 Hx of tibia fibula fx w/fixation in 2015. Walks about 1 mile with dog daily right now on flat. Has to lift dog into car. Prior to this walked 4 miles a day in the [place] Prior Treatments and Tests US:IMPRESSION: Interstitial pre insertional Achilles tendon tear, superimposed on moderate tendinosis, without a full-thickness tear. MRI: IMPRESSION: 1. Moderate grade intrasubstance partial- thickness tear involving Achilles tendon approximately 6.3 cm from its insertion of posterior calcaneus with up to 1.6 cm proximal retraction of torn tendon fibers. Significant surrounding edema and fluid is seen. No definite full-thickness Achilles tendon rupture. 2. Postsurgical changes in distal tibial shaft with susceptibility artifacts. Mild midfoot and hindfoot joint osteoarthritis. No acute fracture or dislocation. No osteochondral injuries of talar dome. Small tibiotalar joint effusion, no loose bodies. 3. Extensor, flexor, and peroneus tendons are intact. 4. Low-grade sprain involving spring ligament near its distal insertion. No full-thickness ankle ligament rupture. 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 He states R lateral hip bothersome at mile 1 walking. PT-OP-D Balance Start: 11/16/24 09:38 Freq: Status: Active Protocol: Document 12/06/24 09:00 [facility] (Rec: 12/06/24 09:45 [facility] [id number]) Balance Tests Single Limb Standing Single Limb- Right 15 sec PT-OP-F Manual Assessment Start: 11/16/24 09:38 Freq: Status: Active Protocol: Document 11/16/24 09:39 [facility] (Rec: 11/16/24 11:07 [facility] [id number]) Manual Assessments Soft Tissue Assessment Soft Tissue Mobility Assessment tighness along calf and achilles PT-OP-G Mobility & Gait Start: 11/16/24 09:38 Freq: Status: Active Protocol: Document 11/16/24 09:39 [facility] (Rec: 11/16/24 11:07 [facility] [id number]) OP Gait Assessment Comments Gait Comments dec stance time on RLE and dec push off. PT-OP-J Posture/Palpation/Skin Start: 11/16/24 09:38 Freq: Status: Active Protocol: Document 11/16/24 09:39 [facility] (Rec: 11/16/24 11:07 [facility] [id number]) Posture Evaluation Comments Posture Comments B supination, R rearfoot varus >L, ER tibia R PT-OP-K Range of Motion Start: 11/16/24 09:38 Freq: Status: Active Protocol: Document 12/06/24 09:00 [facility] (Rec: 12/06/24 09:45 [facility] [id number]) Ankle and Foot Goniometric Range of Motion Ankle and Foot Right Active Dorsiflexion with Knee Flexed 8 Dorsiflexion with Knee Extended 5 Plantarflexion 40 Inversion 30 Eversion 20 PT-OP-M Strength Start: 11/16/24 09:38 Freq: Status: Active Protocol: Document 12/06/24 09:00 [facility] (Rec: 12/06/24 09:45 [facility] [id number]) Hip Strength Hip Manual Muscle Testing Right Flexion (L2) 4 Good Extension (S1) 3+ Fair+ Abduction 4- Good- External Rotation 4+ Good+ Internal Rotation 5 Normal Left Flexion (L2) 4 Good Extension (S1) 3+ Fair+ Abduction 4 Good External Rotation 4+ Good+ Internal Rotation 5 Normal Knee Strength Knee Manual Muscle Testing Left Flexion (S2) 4+ Good+ Extension (L3) 5 Normal Right Flexion (S2) 4+ Good+ Extension (L3) 5 Normal Ankle/Foot Strength Ankle and Foot Manual Muscle Testing Left Dorsiflexion (L4) 5 Normal Plantarflexion (S1) 5 Normal Inversion 5 Normal Eversion (S1) 5 Normal Comments 20 heel raises Right Dorsiflexion (L4) 4+ Good+ Plantarflexion (S1) 2+ Poor+ Inversion 4+ Good+ Eversion (S1) 4+ Good+ Comments unable to do SL heel raise Toe Strength Toe Manual Muscle Testing Right 2nd Toe Flexion 4+ Good+ Extension 5 Normal Comments 2-5 Right Great Toe Flexion 5 Normal Extension 4+ Good+ PT-OP-Q Treatments Start: 11/16/24 09:38 Freq: Status: Active Protocol: Document 12/13/24 10:46 [facility] (Rec: 12/13/24 11:31 [facility] [id number]) Gym Equipment Shuttle Balance red clips Details head turns Comments fwd & side: WBOS fwd: staggered stance B EC WBOS F/b up to 27 sec Cued TA and rhomboid fac for midline stability. Therapeutic Exercises Supine Exercises HS stretch Supine Exercise Name added to HEP /c HO Side bilateral Equipment Used strap on foot Reps/Minutes 30 SH Comments cued breath, TKE sammie range for gentle stretch ITB stretch Supine Exercise Name added to HEP /c HO Side bilateral Resistance R>L Equipment Used strap on foot Reps/Minutes 30x2 Comments cued breath, gentle lateral leg stretch piriformis stretch Supine Exercise Name post manual- added to HEP /c HO Side bilateral Resistance hip Assisted IR Equipment Used grasp knee pull opp shld Reps/Minutes 30 SH Comments good feedback stretch\ Standing Exercises DF Standing Exercise Name back at wall and feet away from wall DL Side bilateral Reps/Minutes 15 Comments comfortable range, controlled eccentric lowering clamshells Standing Exercise Name updated sitting Side bilateral Equipment Used L2 at knees Reps/Minutes 20 SH x3, 15 reps Comments cues for posture squat Standing Exercise Name tap chair Side bilateral Equipment Used mesh chair, arms across chest Reps/Minutes 10 Comments cued hip hinge slow descend sidesteps Side bilateral Equipment Used L2 on foot Reps/Minutes 16ft ea Comments cues for band tighter at start Manual Therapy Treatment Consent Patient gave verbal consent for manual Yes treatment Joint Mobilizations innominate Comments use strap: L caudal supine PROM hip Comments Use strap: R IR lat gapping and inf glide with PROM PT-OP-T Assessment and Plan Start: 11/16/24 09:38 Freq: Status: Active Protocol: Document 12/13/24 10:46 [facility] (Rec: 12/13/24 11:31 [facility] [id number]) Physical Therapy Assessment Goals strength Short Term Goal (STG) Pt will be indep w/HEP STG Duration achieved advancing as able Jail Goal (LTG) Pt will score at least 4+/5 on all BLE MMT to show improved stability to allow return to full activity. 12/06-improved LTG Duration 01/19 ROM Jail Goal (LTG) Pt will have DF to at least 5 deg in knee ext position and at least 10 deg in knee flex position to allow ability to do typical activities like stairs and ladders w/o inc pain 12/06-5 deg in ext achieved, 8 deg now in knee flex position LTG Duration 01/25 balance Short Term Goal (STG) Pt will improve RLE SLS to at least 10 sec to show improved balance. STG Duration achieved to 15 sec Golf Cart Assembler Goal (LTG) Pt will improve RLE SLS to at least 20 sec to show improved balance. 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 12/06-has not tried construction work, walking about 1 mile, limited by hip, has not been on boat yet LTG Duration 01/25 Assessment Summary Assessment Pt had good tolerance to manual and initiated stretching for flexibility to R>L hips today with education self application with provided HOs for set up and recall. Pt reported thinks stretching helped. Continued tolerance of resisted ther ex with no adverse affects than muscle tiring. Would benefit from continued progression in balance. Education apply stretching out for walk, discussed with demo how can modify standing. Physical Therapy Plan Frequency and Duration Frequency of Treatment 2x/Week Duration of treatment (weeks) 10 Plan of Care Start Date 11/16/24 Plan of Care End Date 01/25/25 Therapeutic Interventions Therapeutic Interventions Balance Training,Gait Training ,Home Exercise Program,Joint Mobilizations,Manual Therapy, Neuromuscular Re-education, Patient/Caregiver Education, Self-Care/Home Management,Soft Tissue Mobilization,Taping, Therapeutic Activities, Therapeutic Exercises Modalities Cold Pack/Ice Massage,Hot Packs,Infrared Therapy, Ultrasound Next Visit Focus/Plan Next Note Type Treatment Note Next Visit Plan review exercises and advance as able; only gentle calf stretch manual to calf and foot and ankle; shuttle balance, tandem and SL balance tasks, avoid pain w/activity slowly dec wedge in shoe (take away one layer a week provided no pain w/last week's dec)
--- NOTE | 2024-12-21 09:05 | PT.OTN ---
Current Diagnoses Pain in unspecified ankle and joints of unspecified foot (12/21/24) Strain of unspecified Achilles tendon, initial encounter (12/21/24) Physical Therapy Treatment Note PT-OP-A Visit Information Start: 11/16/24 09:38 Freq: Status: Active Protocol: Document 12/21/24 08:21 SP (Rec: 12/21/24 09:08 SP [id number]) Out-Patient Physical Therapy Visit Information Visit Information Visit Type Treatment Note Visit Start Time 08:21 Visit Stop Time 09:05 Visit Number 6 Number of EXPRESS CLERK Visits 2 PT-OP-B Current Condition Start: 11/16/24 09:38 Freq: Status: Active Protocol: Document 11/16/24 09:39 [facility] (Rec: 11/16/24 11:07 [facility] [id number]) Current Condition History of Current Condition Onset Date 09/18 Current Complaints R achilles tear History of Current Condition Pt was moving motor cycle onto sscenter stand and lfiting as pushing down on stand and something popped. Went to urgent care and dx w/partial tear and was instructed to call doctor and got into ortho 09/20. Did some testing on it and determined partial achilles tear and didn't give him anything. Still in a lot of pain in 2 weeks and saw them again and saw another PA and got order of MRI and US. Saw Dr. Sandoval who said can' t do anything d/t blood thinners. Has 1 wedge in shoes now. Will see her in December again. Doing cardiac rehab 3x a week and thinks may have overdone it there too. 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 Hx of tibia fibula fx w/fixation in 2015. Walks about 1 mile with dog daily right now on flat. Has to lift dog into car. Prior to this walked 4 miles a day in the [place] Prior Treatments and Tests US:IMPRESSION: Interstitial pre insertional Achilles tendon tear, superimposed on moderate tendinosis, without a full-thickness tear. MRI: IMPRESSION: 1. Moderate grade intrasubstance partial- thickness tear involving Achilles tendon approximately 6.3 cm from its insertion of posterior calcaneus with up to 1.6 cm proximal retraction of torn tendon fibers. Significant surrounding edema and fluid is seen. No definite full-thickness Achilles tendon rupture. 2. Postsurgical changes in distal tibial shaft with susceptibility artifacts. Mild midfoot and hindfoot joint osteoarthritis. No acute fracture or dislocation. No osteochondral injuries of talar dome. Small tibiotalar joint effusion, no loose bodies. 3. Extensor, flexor, and peroneus tendons are intact. 4. Low-grade sprain involving spring ligament near its distal insertion. No full-thickness ankle ligament rupture. Treatment Goals Patient/Caregiver Goals be able to walk, sailing, motorcyling, construction, skiing PT-OP-C Subjective Start: 11/16/24 09:38 Freq: Status: Active Protocol: Document 12/21/24 08:21 SP (Rec: 12/21/24 09:08 SP [id number]) OP-PT Subjective Patient Comments Patient Comments Pt reported his R ankle doing much better, not much pain anymore. Was outside helping repair his friend's 450 ft fence with 6ft wooden slats that is built on a hill over the weekend., his ankle was fine but body pretty sore by end of day. He finished cardiac rehabe last week. PT-OP-D Balance Start: 11/16/24 09:38 Freq: Status: Active Protocol: Document 12/06/24 09:00 [facility] (Rec: 12/06/24 09:45 [facility] [id number]) Balance Tests Single Limb Standing Single Limb- Right 15 sec PT-OP-F Manual Assessment Start: 11/16/24 09:38 Freq: Status: Active Protocol: Document 11/16/24 09:39 [facility] (Rec: 11/16/24 11:07 [facility] [id number]) Manual Assessments Soft Tissue Assessment Soft Tissue Mobility Assessment tighness along calf and achilles PT-OP-G Mobility & Gait Start: 11/16/24 09:38 Freq: Status: Active Protocol: Document 11/16/24 09:39 [facility] (Rec: 11/16/24 11:07 [facility] [id number]) OP Gait Assessment Comments Gait Comments dec stance time on RLE and dec push off. PT-OP-J Posture/Palpation/Skin Start: 11/16/24 09:38 Freq: Status: Active Protocol: Document 11/16/24 09:39 [facility] (Rec: 11/16/24 11:07 [facility] [id number]) Posture Evaluation Comments Posture Comments B supination, R rearfoot varus >L, ER tibia R PT-OP-K Range of Motion Start: 11/16/24 09:38 Freq: Status: Active Protocol: Document 12/06/24 09:00 [facility] (Rec: 12/06/24 09:45 [facility] [id number]) Ankle and Foot Goniometric Range of Motion Ankle and Foot Right Active Dorsiflexion with Knee Flexed 8 Dorsiflexion with Knee Extended 5 Plantarflexion 40 Inversion 30 Eversion 20 PT-OP-M Strength Start: 11/16/24 09:38 Freq: Status: Active Protocol: Document 12/06/24 09:00 [facility] (Rec: 12/06/24 09:45 [facility] [id number]) Hip Strength Hip Manual Muscle Testing Right Flexion (L2) 4 Good Extension (S1) 3+ Fair+ Abduction 4- Good- External Rotation 4+ Good+ Internal Rotation 5 Normal Left Flexion (L2) 4 Good Extension (S1) 3+ Fair+ Abduction 4 Good External Rotation 4+ Good+ Internal Rotation 5 Normal Knee Strength Knee Manual Muscle Testing Left Flexion (S2) 4+ Good+ Extension (L3) 5 Normal Right Flexion (S2) 4+ Good+ Extension (L3) 5 Normal Ankle/Foot Strength Ankle and Foot Manual Muscle Testing Left Dorsiflexion (L4) 5 Normal Plantarflexion (S1) 5 Normal Inversion 5 Normal Eversion (S1) 5 Normal Comments 20 heel raises Right Dorsiflexion (L4) 4+ Good+ Plantarflexion (S1) 2+ Poor+ Inversion 4+ Good+ Eversion (S1) 4+ Good+ Comments unable to do SL heel raise Toe Strength Toe Manual Muscle Testing Right 2nd Toe Flexion 4+ Good+ Extension 5 Normal Comments 2-5 Right Great Toe Flexion 5 Normal Extension 4+ Good+ PT-OP-Q Treatments Start: 11/16/24 09:38 Freq: Status: Active Protocol: Document 12/21/24 08:21 SP (Rec: 12/21/24 09:08 SP [id number]) Cardio Equipment Bicycle (Upright) Duration (Minutes) 6 Resistance 5 Seat Position 8 Other 80 RPMs Gym Equipment Shuttle Recovery heel raises Resistance 50# 2 navy Reps/Time x15 SL squat Resistance 75# 3 navy Reps/Time 10 reps each LE Therapeutic Exercises Sitting Exercises ankle 4 way Sitting Exercise Name inversion, eversion, DF Side right Resistance L4>5 Equipment Used ball between knees Reps/Minutes 15 ea Comments cues no knee movement w/ eversion, leg extended IV resistance across front Standing Exercises SL sliders Standing Exercise Name added to HEP withHO: 12, 3/9, 6 oclock Side bilateral Equipment Used slider Reps/Minutes 5 reps each position x2 sets Comments cued WB over stance LE, LE reaching on slider- improved form and no pain heel raises Standing Exercise Name DL slow control down-cues inc wt on RLE Side bilateral Reps/Minutes 10 Neuro Re-Education Treatment Balance Activities dynamic stepping Details fwd, bwd with HTs [place] Comments added to HEP SL Equipment near counter contact during RLE bal Comments L 30 sec R many reps up to 5 sec Cues for posture, rhomboid and TA enagement with slight space edgar liu for bal support midline tandem Comments 1. fwd walk 15ft x2 2. Tandem floor: B 60 sec PT-OP-T Assessment and Plan Start: 11/16/24 09:38 Freq: Status: Active Protocol: Document 12/21/24 08:21 SP (Rec: 12/21/24 09:08 SP [id number]) Physical Therapy Assessment Goals strength Short Term Goal (STG) Pt will be indep w/HEP STG Duration achieved advancing as able Manager Fund Goal (LTG) Pt will score at least 4+/5 on all BLE MMT to show improved stability to allow return to full activity. 12/06-improved LTG Duration 01/19 ROM Mcc Goal (LTG) Pt will have DF to at least 5 deg in knee ext position and at least 10 deg in knee flex position to allow ability to do typical activities like stairs and ladders w/o inc pain 12/06-5 deg in ext achieved, 8 deg now in knee flex position LTG Duration 5/ balance Short Term Goal (STG) Pt will improve RLE SLS to at least 10 sec to show improved balance. STG Duration achieved to 15 sec Manager Fund Goal (LTG) Pt will improve RLE SLS to at least 20 sec to show improved balance. 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 3/18-has not tried construction work, walking about 1 mile, limited by hip, has not been on boat yet LTG Duration 01/25 Assessment Summary Assessment Pt reports wantst to get back to skiing, hiking, construction. Improved no pain during fence repairs over weekend. Sees ortho next week, discussed as if cleared or any restrictions with PT. PRogressed SL activities sliders and dynamic stepping activities for functional balance, ROM and strengthening to support uneven walking at construction site and return to skiing and uneven trail hiking. Physical Therapy Plan Frequency and Duration Frequency of Treatment 2x/Week Duration of treatment (weeks) 10 Plan of Care Start Date 11/16/24 Plan of Care End Date 01/25/25 Therapeutic Interventions Therapeutic Interventions Balance Training,Gait Training ,Home Exercise Program,Joint Mobilizations,Manual Therapy, Neuromuscular Re-education, Patient/Caregiver Education, Self-Care/Home Management,Soft Tissue Mobilization,Taping, Therapeutic Activities, Therapeutic Exercises Modalities Cold Pack/Ice Massage,Hot Packs,Infrared Therapy, Ultrasound Next Visit Focus/Plan Next Note Type Treatment Note Next Visit Plan Recheck dynamic stepping and sliders added last tx. POC: review exercises and advance as able; only gentle calf stretch manual to calf and foot and ankle; shuttle balance, tandem and SL balance tasks, avoid pain w/activity slowly dec wedge in shoe (take away one layer a week provided no pain w/last week's dec)
--- NOTE | 2025-01-17 15:02 | PT.OTN ---
Current Diagnoses Pain in unspecified ankle and joints of unspecified foot (01/17/25) Strain of unspecified Achilles tendon, initial encounter (01/17/25) Physical Therapy Treatment Note PT-OP-A Visit Information Start: 11/16/24 09:38 Freq: Status: Active Protocol: Document 01/17/25 14:55 [facility] (Rec: 01/17/25 15:01 [facility] [id number]) Out-Patient Physical Therapy Visit Information Visit Information Visit Type Progress Note Visit Start Time 09:50 Visit Stop Time 10:30 Visit Number 7 Number of BASTING PULLER Visits 0 PT-OP-B Current Condition Start: 11/16/24 09:38 Freq: Status: Active Protocol: Document 11/16/24 09:39 [facility] (Rec: 11/16/24 11:07 [facility] [id number]) Current Condition History of Current Condition Onset Date 09/18 Current Complaints R achilles tear History of Current Condition Pt was moving motor cycle onto sscenter stand and lfiting as pushing down on stand and something popped. Went to urgent care and dx w/partial tear and was instructed to call doctor and got into ortho 09/20. Did some testing on it and determined partial achilles tear and didn't give him anything. Still in a lot of pain in 2 weeks and saw them again and saw another PA and got order of MRI and US. Saw Dr. Sandoval who said can' t do anything d/t blood thinners. Has 1 wedge in shoes now. Will see her in December again. Doing cardiac rehab 3x a week and thinks may have overdone it there too. 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 Hx of tibia fibula fx w/fixation in 2015. Walks about 1 mile with dog daily right now on flat. Has to lift dog into car. Prior to this walked 4 miles a day in the [place] Prior Treatments and Tests US:IMPRESSION: Interstitial pre insertional Achilles tendon tear, superimposed on moderate tendinosis, without a full-thickness tear. MRI: IMPRESSION: 1. Moderate grade intrasubstance partial- thickness tear involving Achilles tendon approximately 6.3 cm from its insertion of posterior calcaneus with up to 1.6 cm proximal retraction of torn tendon fibers. Significant surrounding edema and fluid is seen. No definite full-thickness Achilles tendon rupture. 2. Postsurgical changes in distal tibial shaft with susceptibility artifacts. Mild midfoot and hindfoot joint osteoarthritis. No acute fracture or dislocation. No osteochondral injuries of talar dome. Small tibiotalar joint effusion, no loose bodies. 3. Extensor, flexor, and peroneus tendons are intact. 4. Low-grade sprain involving spring ligament near its distal insertion. No full-thickness ankle ligament rupture. Treatment Goals Patient/Caregiver Goals be able to walk, sailing, motorcyling, construction, skiing PT-OP-C Subjective Start: 11/16/24 09:38 Freq: Status: Active Protocol: Document 01/17/25 14:55 [facility] (Rec: 01/17/25 15:01 [facility] [id number]) OP-PT Subjective Patient Comments Patient Comments pt reports sick for 3 weeks so walking less. feels a little unstable on uneven ground like when building fence and on boat PT-OP-D Balance Start: 11/16/24 09:38 Freq: Status: Active Protocol: Document 01/17/25 14:55 [facility] (Rec: 01/17/25 15:01 [facility] [id number]) Balance Tests Single Limb Standing Single Limb- Right 17 sec Single Limb- Left >30 sec PT-OP-F Manual Assessment Start: 11/16/24 09:38 Freq: Status: Active Protocol: Document 11/16/24 09:39 [facility] (Rec: 11/16/24 11:07 [facility] [id number]) Manual Assessments Soft Tissue Assessment Soft Tissue Mobility Assessment tighness along calf and achilles PT-OP-G Mobility & Gait Start: 11/16/24 09:38 Freq: Status: Active Protocol: Document 11/16/24 09:39 [facility] (Rec: 11/16/24 11:07 [facility] [id number]) OP Gait Assessment Comments Gait Comments dec stance time on RLE and dec push off. PT-OP-J Posture/Palpation/Skin Start: 11/16/24 09:38 Freq: Status: Active Protocol: Document 11/16/24 09:39 [facility] (Rec: 11/16/24 11:07 [facility] [id number]) Posture Evaluation Comments Posture Comments B supination, R rearfoot varus >L, ER tibia R PT-OP-K Range of Motion Start: 11/16/24 09:38 Freq: Status: Active Protocol: Document 01/17/25 14:55 [facility] (Rec: 01/17/25 15:01 [facility] [id number]) Ankle and Foot Goniometric Range of Motion Ankle and Foot Right Active Dorsiflexion with Knee Flexed 11 Dorsiflexion with Knee Extended 6 PT-OP-M Strength Start: 11/16/24 09:38 Freq: Status: Active Protocol: Document 01/17/25 14:55 [facility] (Rec: 01/17/25 15:01 [facility] [id number]) Hip Strength Hip Manual Muscle Testing Right Flexion (L2) 4+ Good+ Extension (S1) 4- Good- Abduction 4 Good Adduction 4+ Good+ External Rotation 4+ Good+ Internal Rotation 5 Normal Left Flexion (L2) 4+ Good+ Extension (S1) 4- Good- Abduction 4 Good Adduction 4+ Good+ External Rotation 5 Normal Internal Rotation 5 Normal Knee Strength Knee Manual Muscle Testing Left Flexion (S2) 5 Normal Extension (L3) 5 Normal Right Flexion (S2) 5 Normal Extension (L3) 5 Normal Ankle/Foot Strength Ankle and Foot Manual Muscle Testing Left Dorsiflexion (L4) 5 Normal Plantarflexion (S1) 5 Normal Inversion 5 Normal Eversion (S1) 5 Normal Comments 20 heel raises Right Dorsiflexion (L4) 5 Normal Plantarflexion (S1) 2+ Poor+ Inversion 5 Normal Eversion (S1) 5 Normal Comments unable to do SL heel raise PT-OP-Q Treatments Start: 11/16/24 09:38 Freq: Status: Active Protocol: Document 01/17/25 14:55 [facility] (Rec: 01/17/25 15:01 [facility] [id number]) Gym Equipment Shuttle Balance red clips Details w/balloon volley Comments fwd & side: WBOS fwd: staggered stance B cues posture Therapeutic Exercises Standing Exercises heel raises Standing Exercise Name R focused w/L assisting as needed Reps/Minutes 20 Other Exercises isometrics Other Exercise Name BLE MMT and ROM Neuro Re-Education Treatment Balance Activities bosu Comments 1. black side squats x15 2. step up to SL x15 B dynamic stepping Comments 1. across foam 20ft x5 2. over hurdles across foam (6 hurdles) x8 SL Comments 1. mod SLS w/L foot on ball w/ balloon volley 2. SLS B trials 3. B SL w/balloon volley tandem Comments balance w/balloon volley B PT-OP-T Assessment and Plan Start: 11/16/24 09:38 Freq: Status: Active Protocol: Document 01/17/25 14:55 [facility] (Rec: 01/17/25 15:01 [facility] [id number]) Physical Therapy Assessment Goals strength Short Term Goal (STG) Pt will be indep w/HEP STG Duration achieved advancing as able Shelter Goal (LTG) Pt will score at least 4+/5 on all BLE MMT to show improved stability to allow return to full activity. 12/06-improved 01/17-improved LTG Duration 02/28 ROM Shelter Goal (LTG) Pt will have DF to at least 5 deg in knee ext position and at least 10 deg in knee flex position to allow ability to do typical activities like stairs and ladders w/o inc pain 12/06-5 deg in ext achieved, 8 deg now in knee flex position LTG Duration acheived 01/17 balance Short Term Goal (STG) Pt will improve RLE SLS to at least 10 sec to show improved balance. STG Duration achieved to 15 sec Roof Painter Goal (LTG) Pt will improve RLE SLS to at least 20 sec to show improved balance. 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 Cont weakness of calf and glutes and would benefit from cont PT to improve this to return him back to normal activity w/o pain and dec risk for falling Physical Therapy Plan Frequency and Duration Frequency of Treatment 1x/Week Duration of treatment (weeks) 6 Plan of Care Start Date 01/17/25 Plan of Care End Date 02/28/25 Therapeutic Interventions Therapeutic Interventions Balance Training,Gait Training ,Home Exercise Program,Joint Mobilizations,Manual Therapy, Neuromuscular Re-education, Patient/Caregiver Education, Self-Care/Home Management,Soft Tissue Mobilization,Taping, Therapeutic Activities, Therapeutic Exercises Modalities Cold Pack/Ice Massage,Hot Packs,Infrared Therapy, Ultrasound Next Visit Focus/Plan Next Note Type Treatment Note Next Visit Plan SL activities dynamic, calf strength
--- NOTE | 2025-01-17 15:02 | PT.OPPOC ---
Physical, Occupational & Speech Therapy At [facility] Current Diagnoses Pain in unspecified ankle and joints of unspecified foot (01/17/25) Strain of unspecified Achilles tendon, initial encounter (01/17/25) Visit Care Team Role Provider Type Kristi Masters MD Attending Provider Physician Family Provider Primary Care Provider Referring Provider Specialty: Family Practice PLUG SORTER Address: [address] [place] [address], [id number] Email: [email or web address] Plan Of Care PT-OP-B Current Condition Start: 11/16/24 09:38 Freq: Status: Active Protocol: Document 11/16/24 09:39 [facility] (Rec: 11/16/24 11:07 [facility] [id number]) Current Condition History of Current Condition Onset Date 09/18 Current Complaints R achilles tear History of Current Condition Pt was moving motor cycle onto sscenter stand and lfiting as pushing down on stand and something popped. Went to urgent care and dx w/partial tear and was instructed to call doctor and got into ortho 09/20. Did some testing on it and determined partial achilles tear and didn't give him anything. Still in a lot of pain in 2 weeks and saw them again and saw another PA and got order of MRI and US. Saw Dr. Sandoval who said can' t do anything d/t blood thinners. Has 1 wedge in shoes now. Will see her in December again. Doing cardiac rehab 3x a week and thinks may have overdone it there too. 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 Hx of tibia fibula fx w/fixation in 2016. Walks about 1 mile with dog daily right now on flat. Has to lift dog into car. Prior to this walked 4 miles a day in the [place] Prior Treatments and Tests US:IMPRESSION: Interstitial pre insertional Achilles tendon tear, superimposed on moderate tendinosis, without a full-thickness tear. MRI: IMPRESSION: 1. Moderate grade intrasubstance partial- thickness tear involving Achilles tendon approximately 6.3 cm from its insertion of posterior calcaneus with up to 1.6 cm proximal retraction of torn tendon fibers. Significant surrounding edema and fluid is seen. No definite full-thickness Achilles tendon rupture. 2. Postsurgical changes in distal tibial shaft with susceptibility artifacts. Mild midfoot and hindfoot joint osteoarthritis. No acute fracture or dislocation. No osteochondral injuries of talar dome. Small tibiotalar joint effusion, no loose bodies. 3. Extensor, flexor, and peroneus tendons are intact. 4. Low-grade sprain involving spring ligament near its distal insertion. No full-thickness ankle ligament rupture. Treatment Goals Patient/Caregiver Goals be able to walk, sailing, motorcyling, construction, skiing PT-OP-T Assessment and Plan Start: 11/16/24 09:38 Freq: Status: Active Protocol: Document 01/17/25 14:55 [facility] (Rec: 01/17/25 15:01 [facility] [id number]) Physical Therapy Assessment Goals strength Short Term Goal (STG) Pt will be indep w/HEP STG Duration achieved advancing as able Radio Officer Goal (LTG) Pt will score at least 4+/5 on all BLE MMT to show improved stability to allow return to full activity. 12/06-improved 01/17-improved LTG Duration 6/10 ROM Radio Officer Goal (LTG) Pt will have DF to at least 5 deg in knee ext position and at least 10 deg in knee flex position to allow ability to do typical activities like stairs and ladders w/o inc pain 12/06-5 deg in ext achieved, 8 deg now in knee flex position LTG Duration acheived 01/17 balance Short Term Goal (STG) Pt will improve RLE SLS to at least 10 sec to show improved balance. STG Duration achieved to 15 sec Senior Living Goal (LTG) Pt will improve RLE SLS to at least 20 sec to show improved balance. 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 Cont weakness of calf and glutes and would benefit from cont PT to improve this to return him back to normal activity w/o pain and dec risk for falling Physical Therapy Plan Frequency and Duration Frequency of Treatment 1x/Week Duration of treatment (weeks) 6 Plan of Care Start Date 01/17/25 Plan of Care End Date 02/28/25 Therapeutic Interventions Therapeutic Interventions Balance Training,Gait Training ,Home Exercise Program,Joint Mobilizations,Manual Therapy, Neuromuscular Re-education, Patient/Caregiver Education, Self-Care/Home Management,Soft Tissue Mobilization,Taping, Therapeutic Activities, Therapeutic Exercises Modalities Cold Pack/Ice Massage,Hot Packs,Infrared Therapy, Ultrasound Next Visit Focus/Plan Next Note Type Treatment Note Next Visit Plan SL activities dynamic, calf strength Plan of Care Dates Plan of Care Start Date 01/17/25 Plan of Care End Date 02/28/25 Electronically Signed by: Vaishnavi Reza, PT 01/17/25 [id number] If you are in agreement with this Plan of Care, please return a signed and dated copy. I have reviewed this Plan of Care and certify that the skilled therapy services above are required to meet the patient?s needs. Physician Signature Date Printed Name and Credentials Clinical Instructor Signature Printed Name and Credentials
--- NOTE | 2025-01-23 09:45 | PT.OTN ---
Current Diagnoses Pain in unspecified ankle and joints of unspecified foot (01/23/25) Strain of unspecified Achilles tendon, initial encounter (01/23/25) Physical Therapy Treatment Note PT-OP-A Visit Information Start: 11/16/24 09:38 Freq: Status: Active Protocol: Document 01/23/25 09:04 SP (Rec: 01/23/25 09:10 SP [id number]) Out-Patient Physical Therapy Visit Information Visit Information Visit Type Treatment Note Visit Start Time 09:05 Visit Stop Time 09:45 Visit Number 8 Number of LASER BEAM COLOR SCANNER OPERATOR Visits 1 PT-OP-B Current Condition Start: 11/16/24 09:38 Freq: Status: Active Protocol: Document 11/16/24 09:39 [facility] (Rec: 11/16/24 11:07 [facility] [id number]) Current Condition History of Current Condition Onset Date 09/18 Current Complaints R achilles tear History of Current Condition Pt was moving motor cycle onto sscenter stand and lfiting as pushing down on stand and something popped. Went to urgent care and dx w/partial tear and was instructed to call doctor and got into ortho 09/20. Did some testing on it and determined partial achilles tear and didn't give him anything. Still in a lot of pain in 2 weeks and saw them again and saw another PA and got order of MRI and US. Saw Dr. Sandoval who said can' t do anything d/t blood thinners. Has 1 wedge in shoes now. Will see her in December again. Doing cardiac rehab 3x a week and thinks may have overdone it there too. 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 Hx of tibia fibula fx w/fixation in 2015. Walks about 1 mile with dog daily right now on flat. Has to lift dog into car. Prior to this walked 4 miles a day in the forest Prior Treatments and Tests US:IMPRESSION: Interstitial pre insertional Achilles tendon tear, superimposed on moderate tendinosis, without a full-thickness tear. MRI: IMPRESSION: 1. Moderate grade intrasubstance partial- thickness tear involving Achilles tendon approximately 6.3 cm from its insertion of posterior calcaneus with up to 1.6 cm proximal retraction of torn tendon fibers. Significant surrounding edema and fluid is seen. No definite full-thickness Achilles tendon rupture. 2. Postsurgical changes in distal tibial shaft with susceptibility artifacts. Mild midfoot and hindfoot joint osteoarthritis. No acute fracture or dislocation. No osteochondral injuries of talar dome. Small tibiotalar joint effusion, no loose bodies. 3. Extensor, flexor, and peroneus tendons are intact. 4. Low-grade sprain involving spring ligament near its distal insertion. No full-thickness ankle ligament rupture. Treatment Goals Patient/Caregiver Goals be able to walk, sailing, motorcyling, construction, skiing PT-OP-C Subjective Start: 11/16/24 09:38 Freq: Status: Active Protocol: Document 01/23/25 09:04 SP (Rec: 01/23/25 09:10 SP [id number]) OP-PT Subjective Patient Comments Patient Comments Pt reports he felt ok after last tx. Is compliant with many exercises given over course of PT. PT-OP-D Balance Start: 11/16/24 09:38 Freq: Status: Active Protocol: Document 01/17/25 14:55 [facility] (Rec: 01/17/25 15:01 [facility] [id number]) Balance Tests Single Limb Standing Single Limb- Right 17 sec Single Limb- Left >30 sec PT-OP-F Manual Assessment Start: 11/16/24 09:38 Freq: Status: Active Protocol: Document 11/16/24 09:39 [facility] (Rec: 11/16/24 11:07 [facility] [id number]) Manual Assessments Soft Tissue Assessment Soft Tissue Mobility Assessment tighness along calf and achilles PT-OP-G Mobility & Gait Start: 11/16/24 09:38 Freq: Status: Active Protocol: Document 11/16/24 09:39 [facility] (Rec: 11/16/24 11:07 [facility] [id number]) OP Gait Assessment Comments Gait Comments dec stance time on RLE and dec push off. PT-OP-J Posture/Palpation/Skin Start: 11/16/24 09:38 Freq: Status: Active Protocol: Document 11/16/24 09:39 [facility] (Rec: 11/16/24 11:07 [facility] [id number]) Posture Evaluation Comments Posture Comments B supination, R rearfoot varus >L, ER tibia R PT-OP-K Range of Motion Start: 11/16/24 09:38 Freq: Status: Active Protocol: Document 01/17/25 14:55 [facility] (Rec: 01/17/25 15:01 [facility] [id number]) Ankle and Foot Goniometric Range of Motion Ankle and Foot Right Active Dorsiflexion with Knee Flexed 11 Dorsiflexion with Knee Extended 6 PT-OP-M Strength Start: 11/16/24 09:38 Freq: Status: Active Protocol: Document 01/17/25 14:55 [facility] (Rec: 01/17/25 15:01 [facility] [id number]) Hip Strength Hip Manual Muscle Testing Right Flexion (L2) 4+ Good+ Extension (S1) 4- Good- Abduction 4 Good Adduction 4+ Good+ External Rotation 4+ Good+ Internal Rotation 5 Normal Left Flexion (L2) 4+ Good+ Extension (S1) 4- Good- Abduction 4 Good Adduction 4+ Good+ External Rotation 5 Normal Internal Rotation 5 Normal Knee Strength Knee Manual Muscle Testing Left Flexion (S2) 5 Normal Extension (L3) 5 Normal Right Flexion (S2) 5 Normal Extension (L3) 5 Normal Ankle/Foot Strength Ankle and Foot Manual Muscle Testing Left Dorsiflexion (L4) 5 Normal Plantarflexion (S1) 5 Normal Inversion 5 Normal Eversion (S1) 5 Normal Comments 20 heel raises Right Dorsiflexion (L4) 5 Normal Plantarflexion (S1) 2+ Poor+ Inversion 5 Normal Eversion (S1) 5 Normal Comments unable to do SL heel raise PT-OP-Q Treatments Start: 11/16/24 09:38 Freq: Status: Active Protocol: Document 01/23/25 09:04 SP (Rec: 01/23/25 09:10 SP [id number]) Neuro Re-Education Treatment Balance Activities Dynamic Walking Details HTs fwd and bwd, Tandem EO, EC Surface tile Equipment finger contact wall PRN for stability mid line self corrections Reps/Duration 50 ft hallway 3 laps each Comments cued elongated posture and TA engagment over stance LE improved midline to side and front/back stability for safety beach navigation. bosu Surface close SBA Comments 1. black side squats x20- near rail PRN contact 2. step up to SL x15 B, cues for light contact rail if needed and level foot improved stability dynamic stepping Comments 1. across foam 20ft x5 2. over hurdles across foam (6 hurdles) x4 3. Mat over pods then added hurdles on top mat x3 lengths 4. bal beam then over foam between 3 hurdles- cues for rhomboid and posture for midline stbility improved 5%A> CGA SL Comments 1. mod SLS w/L foot on ball w/ balloon volley 2. SLS B trials- LLE 37 s, RLE 11s & 16s 3. B SL w/balloon volley- cues for posture COG over SL RASHAD with rhomboid and TA engagement with increase space between BLEs helped midline corrections. PT-OP-T Assessment and Plan Start: 11/16/24 09:38 Freq: Status: Active Protocol: Document 01/23/25 09:04 SP (Rec: 01/23/25 09:10 SP [id number]) Physical Therapy Assessment Goals strength Short Term Goal (STG) Pt will be indep w/HEP STG Duration achieved advancing as able Shelter Goal (LTG) Pt will score at least 4+/5 on all BLE MMT to show improved stability to allow return to full activity. 12/06-improved 01/17-improved LTG Duration 02/28 ROM Floor Runner Goal (LTG) Pt will have DF to at least 5 deg in knee ext position and at least 10 deg in knee flex position to allow ability to do typical activities like stairs and ladders w/o inc pain 12/06-5 deg in ext achieved, 8 deg now in knee flex position LTG Duration acheived 01/17 balance Short Term Goal (STG) Pt will improve RLE SLS to at least 10 sec to show improved balance. STG Duration achieved to 15 sec Shelter Goal (LTG) Pt will improve RLE SLS to at least 20 sec to show improved balance. 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 12/06-has not tried construction work, walking about 1 mile, limited by hip, has not been on boat yet 01/17-feels unsteady on boat and over yard a little, less walks d/t sickness recently LTG Duration 02/28 Assessment Summary Assessment Pt tolerated progression in more advanced uneven surface balance and dynamic head turns while walking level surface activities today with education and cues for postural awareness, TA engagement and COG over stance LE for support ankle strategies demonstrated improved stability more midline self corrections to allow safety working on construction site and his boat . Physical Therapy Plan Frequency and Duration Frequency of Treatment 1x/Week Duration of treatment (weeks) 6 Plan of Care Start Date 01/17/25 Plan of Care End Date 02/28/25 Therapeutic Interventions Therapeutic Interventions Balance Training,Gait Training ,Home Exercise Program,Joint Mobilizations,Manual Therapy, Neuromuscular Re-education, Patient/Caregiver Education, Self-Care/Home Management,Soft Tissue Mobilization,Taping, Therapeutic Activities, Therapeutic Exercises Modalities Cold Pack/Ice Massage,Hot Packs,Infrared Therapy, Ultrasound Next Visit Focus/Plan Next Note Type Treatment Note Next Visit Plan Consider condensing HEP next tx. 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
--- NOTE | 2025-02-01 12:15 | PT.OTN ---
Addendum entered and electronically signed by Vaishnavi Reza, PT 02/01/25 12:24: PT direct supervision and direction to student PT Mili Rivera throughout session Original Note: Current Diagnoses Pain in unspecified ankle and joints of unspecified foot (02/01/25) Strain of unspecified Achilles tendon, initial encounter (02/01/25) Physical Therapy Treatment Note PT-OP-A Visit Information Start: 11/16/24 09:38 Freq: Status: Active Protocol: Document 02/01/25 11:49 GG (Rec: 02/01/25 12:11 GG Laptop) Out-Patient Physical Therapy Visit Information Visit Information Visit Type Treatment Note Visit Start Time 08:18 Visit Stop Time 09:00 Visit Number 9 Number of WOOD FILLER Visits 0 PT-OP-B Current Condition Start: 11/16/24 09:38 Freq: Status: Active Protocol: Document 11/16/24 09:39 [facility] (Rec: 11/16/24 11:07 [facility] [id number]) Current Condition History of Current Condition Onset Date 09/18 Current Complaints R achilles tear History of Current Condition Pt was moving motor cycle onto sscenter stand and lfiting as pushing down on stand and something popped. Went to urgent care and dx w/partial tear and was instructed to call doctor and got into ortho 09/20. Did some testing on it and determined partial achilles tear and didn't give him anything. Still in a lot of pain in 2 weeks and saw them again and saw another PA and got order of MRI and US. Saw Dr. Sandoval who said can' t do anything d/t blood thinners. Has 1 wedge in shoes now. Will see her in December again. Doing cardiac rehab 3x a week and thinks may have overdone it there too. 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 Hx of tibia fibula fx w/fixation in 2015. Walks about 1 mile with dog daily right now on flat. Has to lift dog into car. Prior to this walked 4 miles a day in the [place] Prior Treatments and Tests US:IMPRESSION: Interstitial pre insertional Achilles tendon tear, superimposed on moderate tendinosis, without a full-thickness tear. MRI: IMPRESSION: 1. Moderate grade intrasubstance partial- thickness tear involving Achilles tendon approximately 6.3 cm from its insertion of posterior calcaneus with up to 1.6 cm proximal retraction of torn tendon fibers. Significant surrounding edema and fluid is seen. No definite full-thickness Achilles tendon rupture. 2. Postsurgical changes in distal tibial shaft with susceptibility artifacts. Mild midfoot and hindfoot joint osteoarthritis. No acute fracture or dislocation. No osteochondral injuries of talar dome. Small tibiotalar joint effusion, no loose bodies. 3. Extensor, flexor, and peroneus tendons are intact. 4. Low-grade sprain involving spring ligament near its distal insertion. No full-thickness ankle ligament rupture. 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 Notes that he still struggles with balance and wants to continue working on that. PT-OP-D Balance Start: 11/16/24 09:38 Freq: Status: Active Protocol: Document 01/17/25 14:55 [facility] (Rec: 01/17/25 15:01 [facility] [id number]) Balance Tests Single Limb Standing Single Limb- Right 17 sec Single Limb- Left >30 sec PT-OP-F Manual Assessment Start: 11/16/24 09:38 Freq: Status: Active Protocol: Document 11/16/24 09:39 [facility] (Rec: 11/16/24 11:07 [facility] [id number]) Manual Assessments Soft Tissue Assessment Soft Tissue Mobility Assessment tighness along calf and achilles PT-OP-G Mobility & Gait Start: 11/16/24 09:38 Freq: Status: Active Protocol: Document 11/16/24 09:39 [facility] (Rec: 11/16/24 11:07 [facility] [id number]) OP Gait Assessment Comments Gait Comments dec stance time on RLE and dec push off. PT-OP-J Posture/Palpation/Skin Start: 11/16/24 09:38 Freq: Status: Active Protocol: Document 11/16/24 09:39 [facility] (Rec: 11/16/24 11:07 [facility] [id number]) Posture Evaluation Comments Posture Comments B supination, R rearfoot varus >L, ER tibia R PT-OP-K Range of Motion Start: 11/16/24 09:38 Freq: Status: Active Protocol: Document 01/17/25 14:55 [facility] (Rec: 01/17/25 15:01 [facility] [id number]) Ankle and Foot Goniometric Range of Motion Ankle and Foot Right Active Dorsiflexion with Knee Flexed 11 Dorsiflexion with Knee Extended 6 PT-OP-M Strength Start: 11/16/24 09:38 Freq: Status: Active Protocol: Document 01/17/25 14:55 [facility] (Rec: 01/17/25 15:01 [facility] [id number]) Hip Strength Hip Manual Muscle Testing Right Flexion (L2) 4+ Good+ Extension (S1) 4- Good- Abduction 4 Good Adduction 4+ Good+ External Rotation 4+ Good+ Internal Rotation 5 Normal Left Flexion (L2) 4+ Good+ Extension (S1) 4- Good- Abduction 4 Good Adduction 4+ Good+ External Rotation 5 Normal Internal Rotation 5 Normal Knee Strength Knee Manual Muscle Testing Left Flexion (S2) 5 Normal Extension (L3) 5 Normal Right Flexion (S2) 5 Normal Extension (L3) 5 Normal Ankle/Foot Strength Ankle and Foot Manual Muscle Testing Left Dorsiflexion (L4) 5 Normal Plantarflexion (S1) 5 Normal Inversion 5 Normal Eversion (S1) 5 Normal Comments 20 heel raises Right Dorsiflexion (L4) 5 Normal Plantarflexion (S1) 2+ Poor+ Inversion 5 Normal Eversion (S1) 5 Normal Comments unable to do SL heel raise PT-OP-Q Treatments Start: 11/16/24 09:38 Freq: Status: Active Protocol: Document 02/01/25 11:49 GG (Rec: 02/01/25 12:11 GG Laptop) Gym Equipment Shuttle Recovery Bilateral Squats Resistance 125# Shuttle Recovery Platform Unstable Reps/Time 25 heel raises Details R Resistance 12#, 25#, 37# Shuttle Recovery Platform Stable Reps/Time 12 each weight Shuttle Rebound balance Reps/Duration 1 min each Comments 1. marches 2. DL stance EC (static and nudges) 3. Tandem EC (nudges) Shuttle Balance red clips Details balloon volley both directions Comments fwd and lateral facing: WBOS, NBOS, staggered stance B Therapeutic Exercises Supine Exercises calf stretch Side bilateral Reps/Minutes 1 min Neuro Re-Education Treatment Balance Activities dynamic stepping Comments 1. over hurdles across foam (4 hurdles) x3 SBA at rail; cueing to step over hurdles and maintain SL balance before stepping over 2. bal beam walk x2 CGA 3. bal beam with toe tap reach to pods x2 laps (inc. distance second round) CGA SL Comments 1. SL trials B 2. toe tap reach (3 pods) PT-OP-T Assessment and Plan Start: 11/16/24 09:38 Freq: Status: Active Protocol: Document 02/01/25 11:49 GG (Rec: 02/01/25 12:11 GG Laptop) Physical Therapy Assessment Goals strength Short Term Goal (STG) Pt will be indep w/HEP STG Duration achieved advancing as able Fpc Goal (LTG) Pt will score at least 4+/5 on all BLE MMT to show improved stability to allow return to full activity. 12/06-improved 01/17-improved LTG Duration 02/28 ROM Bottle Labeler Goal (LTG) Pt will have DF to at least 5 deg in knee ext position and at least 10 deg in knee flex position to allow ability to do typical activities like stairs and ladders w/o inc pain 12/06-5 deg in ext achieved, 8 deg now in knee flex position LTG Duration acheived 01/17 balance Short Term Goal (STG) Pt will improve RLE SLS to at least 10 sec to show improved balance. STG Duration achieved to 15 sec Fpc Goal (LTG) Pt will improve RLE SLS to at least 20 sec to show improved balance. 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 12/06-has not tried construction work, walking about 1 mile, limited by hip, has not been on boat yet 01/17-feels unsteady on boat and over yard a little, less walks d/t sickness recently LTG Duration 02/28 Assessment Summary Assessment Pt continues to tolerate increased balance challenges and required minimal assistance to regain balance during activities. Continues to experience weakness in calf which limits ability to balance and functional activities. Incorporated reactive balance challenges to better simulate pts functional goals. Physical Therapy Plan Frequency and Duration Frequency of Treatment 1x/Week Duration of treatment (weeks) 6 Plan of Care Start Date 01/17/25 Plan of Care End Date 02/28/25 Next Visit Focus/Plan Next Note Type Treatment Note Next Visit Plan discuss HEP next tx. 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
--- NOTE | 2025-02-07 18:11 | PT.OTN ---
Addendum entered and electronically signed by Vaishnavi Reza, PT 02/14/25 08:14: PT direct supervision and direction to student PT Mili Rivera throughout session Original Note: Current Diagnoses Pain in unspecified ankle and joints of unspecified foot (02/07/25) Strain of unspecified Achilles tendon, initial encounter (02/07/25) Physical Therapy Treatment Note PT-OP-A Visit Information Start: 11/16/24 09:38 Freq: Status: Active Protocol: Document 02/07/25 10:43 GG (Rec: 02/07/25 11:02 GG Laptop) Out-Patient Physical Therapy Visit Information Visit Information Visit Type Treatment Note Visit Start Time 07:35 Visit Stop Time 08:15 Visit Number 10 Number of CONSTRUCTION SUPERVISOR Visits 0 PT-OP-B Current Condition Start: 11/16/24 09:38 Freq: Status: Active Protocol: Document 11/16/24 09:39 [facility] (Rec: 11/16/24 11:07 [facility] [id number]) Current Condition History of Current Condition Onset Date 09/18 Current Complaints R achilles tear History of Current Condition Pt was moving motor cycle onto sscenter stand and lfiting as pushing down on stand and something popped. Went to urgent care and dx w/partial tear and was instructed to call doctor and got into ortho 09/20. Did some testing on it and determined partial achilles tear and didn't give him anything. Still in a lot of pain in 2 weeks and saw them again and saw another PA and got order of MRI and US. Saw Dr. Sandoval who said can' t do anything d/t blood thinners. Has 1 wedge in shoes now. Will see her in December again. Doing cardiac rehab 3x a week and thinks may have overdone it there too. 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 Hx of tibia fibula fx w/fixation in 2015. Walks about 1 mile with dog daily right now on flat. Has to lift dog into car. Prior to this walked 4 miles a [place] the [place] Prior Treatments and Tests US:IMPRESSION: Interstitial pre insertional Achilles tendon tear, superimposed on moderate tendinosis, without a full-thickness tear. MRI: IMPRESSION: 1. Moderate grade intrasubstance partial- thickness tear involving Achilles tendon approximately 6.3 cm from its insertion of posterior calcaneus with up to 1.6 cm proximal retraction of torn tendon fibers. Significant surrounding edema and fluid is seen. No definite full-thickness Achilles tendon rupture. 2. Postsurgical changes in distal tibial shaft with susceptibility artifacts. Mild midfoot and hindfoot joint osteoarthritis. No acute fracture or dislocation. No osteochondral injuries of talar dome. Small tibiotalar joint effusion, no loose bodies. 3. Extensor, flexor, and peroneus tendons are intact. 4. Low-grade sprain involving spring ligament near its distal insertion. No full-thickness ankle ligament rupture. Treatment Goals Patient/Caregiver Goals be able to walk, sailing, motorcyling, construction, skiing PT-OP-C Subjective Start: 11/16/24 09:38 Freq: Status: Active Protocol: Document 02/07/25 10:43 GG (Rec: 02/07/25 11:02 GG Laptop) OP-PT Subjective Patient Comments Patient Comments Pt reports that he feels that he is a pretty good place w balance and LE strength. PT-OP-D Balance Start: 11/16/24 09:38 Freq: Status: Active Protocol: Document 01/17/25 14:55 LR (Rec: 01/17/25 15:01 [facility] [id number]) Balance Tests Single Limb Standing Single Limb- Right 17 sec Single Limb- Left >30 sec PT-OP-F Manual Assessment Start: 11/16/24 09:38 Freq: Status: Active Protocol: Document 11/16/24 09:39 [facility] (Rec: 11/16/24 11:07 [facility] [id number]) Manual Assessments Soft Tissue Assessment Soft Tissue Mobility Assessment tighness along calf and achilles PT-OP-G Mobility & Gait Start: 11/16/24 09:38 Freq: Status: Active Protocol: Document 11/16/24 09:39 [facility] (Rec: 11/16/24 11:07 [facility] [id number]) OP Gait Assessment Comments Gait Comments dec stance time on RLE and dec push off. PT-OP-J Posture/Palpation/Skin Start: 11/16/24 09:38 Freq: Status: Active Protocol: Document 11/16/24 09:39 [facility] (Rec: 11/16/24 11:07 [facility] [id number]) Posture Evaluation Comments Posture Comments B supination, R rearfoot varus >L, ER tibia R PT-OP-K Range of Motion Start: 11/16/24 09:38 Freq: Status: Active Protocol: Document 01/17/25 14:55 [facility] (Rec: 01/17/25 15:01 [facility] [id number]) Ankle and Foot Goniometric Range of Motion Ankle and Foot Right Active Dorsiflexion with Knee Flexed 11 Dorsiflexion with Knee Extended 6 PT-OP-M Strength Start: 11/16/24 09:38 Freq: Status: Active Protocol: Document 01/17/25 14:55 [facility] (Rec: 01/17/25 15:01 [facility] [id number]) Hip Strength Hip Manual Muscle Testing Right Flexion (L2) 4+ Good+ Extension (S1) 4- Good- Abduction 4 Good Adduction 4+ Good+ External Rotation 4+ Good+ Internal Rotation 5 Normal Left Flexion (L2) 4+ Good+ Extension (S1) 4- Good- Abduction 4 Good Adduction 4+ Good+ External Rotation 5 Normal Internal Rotation 5 Normal Knee Strength Knee Manual Muscle Testing Left Flexion (S2) 5 Normal Extension (L3) 5 Normal Right Flexion (S2) 5 Normal Extension (L3) 5 Normal Ankle/Foot Strength Ankle and Foot Manual Muscle Testing Left Dorsiflexion (L4) 5 Normal Plantarflexion (S1) 5 Normal Inversion 5 Normal Eversion (S1) 5 Normal Comments 20 heel raises Right Dorsiflexion (L4) 5 Normal Plantarflexion (S1) 2+ Poor+ Inversion 5 Normal Eversion (S1) 5 Normal Comments unable to do SL heel raise PT-OP-Q Treatments Start: 11/16/24 09:38 Freq: Status: Active Protocol: Document 02/07/25 10:43 GG (Rec: 02/07/25 11:02 GG Laptop) Gym Equipment Shuttle Recovery Bilateral Squats Resistance 125# Shuttle Recovery Platform Unstable Reps/Time 25 heel raises Details R Resistance 25#, 37# Shuttle Recovery Platform Stable Reps/Time 15 each weight Shuttle Rebound balance Reps/Duration 1 min each Comments 1. tandem EO/EC 2. DL EC (nudges) Shuttle Balance red clips Details ball toss both directions Comments fwd and lateral facing: WBOS, NBOS, staggered stance B Therapeutic Exercises Supine Exercises calf stretch Side bilateral Reps/Minutes 1 min Neuro Re-Education Treatment Balance Activities dynamic stepping Comments stepping to foams x3 SBA at rail; cueing maintain SL balance for 5 sec before stepping to next foam SL Reps/Duration 15 bilateral Comments 1. turn to and front tap to pods (4 pods); cue to lightly tap 2. toe tap reach (3 pods) PT-OP-T Assessment and Plan Start: 11/16/24 09:38 Freq: Status: Active Protocol: Document 02/07/25 10:43 GG (Rec: 02/07/25 11:02 GG Laptop) Physical Therapy Assessment Assessment Summary Assessment Pt tolerated session well today w/ minor LOB during advanced balance challenges, but also demonstrates good balance recovery strategies. Pt is much more confident in balance and strength capacities d/t decreased assistance from SPT required. Physical Therapy Plan Frequency and Duration Frequency of Treatment 1x/Week Duration of treatment (weeks) 6 Plan of Care Start Date 01/17/25 Plan of Care End Date 02/28/25 Next Visit Focus/Plan Next Note Type Discharge Summary Next Visit Plan discuss HEP next tx. 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
--- NOTE | 2025-02-16 12:17 | PT.OTN ---
Addendum entered and electronically signed by Vaishnavi Reza, PT 02/20/25 09:22: PT direct supervision and direction to student PT Mili Rivera throughout session Original Note: Current Diagnoses Pain in unspecified ankle and joints of unspecified foot (02/16/25) Strain of unspecified Achilles tendon, initial encounter (02/16/25) Physical Therapy Treatment Note PT-OP-A Visit Information Start: 11/16/24 09:38 Freq: Status: Active Protocol: Document 02/16/25 09:48 GG (Rec: 02/16/25 10:08 GG Laptop) Out-Patient Physical Therapy Visit Information Visit Information Visit Type Discharge Summary Visit Start Time 09:03 Visit Stop Time 09:45 Visit Number 11 Number of CHIEF EXECUTIVE OFFICER Visits 0 PT-OP-B Current Condition Start: 11/16/24 09:38 Freq: Status: Active Protocol: Document 11/16/24 09:39 [facility] (Rec: 11/16/24 11:07 [facility] [id number]) Current Condition History of Current Condition Onset Date 09/18 Current Complaints R achilles tear History of Current Condition Pt was moving motor cycle onto sscenter stand and lfiting as pushing down on stand and something popped. Went to urgent care and dx w/partial tear and was instructed to call doctor and got into ortho 09/20. Did some testing on it and determined partial achilles tear and didn't give him anything. Still in a lot of pain in 2 weeks and saw them again and saw another PA and got order of MRI and US. Saw Dr. Sandoval who said can' t do anything d/t blood thinners. Has 1 wedge in shoes now. Will see her in December again. Doing cardiac rehab 3x a week and thinks may have overdone it there too. 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 Hx of tibia fibula fx w/fixation in 2015. Walks about 1 mile with dog daily right now on flat. Has to lift dog into car. Prior to this walked 4 miles a day in the forest Prior Treatments and Tests US:IMPRESSION: Interstitial pre insertional Achilles tendon tear, superimposed on moderate tendinosis, without a full-thickness tear. MRI: IMPRESSION: 1. Moderate grade intrasubstance partial- thickness tear involving Achilles tendon approximately 6.3 cm from its insertion of posterior calcaneus with up to 1.6 cm proximal retraction of torn tendon fibers. Significant surrounding edema and fluid is seen. No definite full-thickness Achilles tendon rupture. 2. Postsurgical changes in distal tibial shaft with susceptibility artifacts. Mild midfoot and hindfoot joint osteoarthritis. No acute fracture or dislocation. No osteochondral injuries of talar dome. Small tibiotalar joint effusion, no loose bodies. 3. Extensor, flexor, and peroneus tendons are intact. 4. Low-grade sprain involving spring ligament near its distal insertion. No full-thickness ankle ligament rupture. Treatment Goals Patient/Caregiver Goals be able to walk, sailing, motorcyling, construction, skiing PT-OP-C Subjective Start: 11/16/24 09:38 Freq: Status: Active Protocol: Document 02/16/25 09:48 GG (Rec: 02/16/25 10:08 GG Laptop) OP-PT Subjective Patient Comments Patient Comments Pt reports that he did was able to install a sliding door w/ no issue from ankle. Pt feels he is ready for discharge. PT-OP-D Balance Start: 11/16/24 09:38 Freq: Status: Active Protocol: Document 01/17/25 14:55 [facility] (Rec: 01/17/25 15:01 [facility] [id number]) Balance Tests Single Limb Standing Single Limb- Right 17 sec Single Limb- Left >30 sec PT-OP-F Manual Assessment Start: 11/16/24 09:38 Freq: Status: Active Protocol: Document 11/16/24 09:39 [facility] (Rec: 11/16/24 11:07 [facility] [id number]) Manual Assessments Soft Tissue Assessment Soft Tissue Mobility Assessment tighness along calf and achilles PT-OP-G Mobility & Gait Start: 11/16/24 09:38 Freq: Status: Active Protocol: Document 11/16/24 09:39 [facility] (Rec: 11/16/24 11:07 [facility] [id number]) OP Gait Assessment Comments Gait Comments dec stance time on RLE and dec push off. PT-OP-J Posture/Palpation/Skin Start: 11/16/24 09:38 Freq: Status: Active Protocol: Document 11/16/24 09:39 [facility] (Rec: 11/16/24 11:07 [facility] [id number]) Posture Evaluation Comments Posture Comments B supination, R rearfoot varus >L, ER tibia R PT-OP-K Range of Motion Start: 11/16/24 09:38 Freq: Status: Active Protocol: Document 01/17/25 14:55 [facility] (Rec: 01/17/25 15:01 [facility] [id number]) Ankle and Foot Goniometric Range of Motion Ankle and Foot Right Active Dorsiflexion with Knee Flexed 11 Dorsiflexion with Knee Extended 6 PT-OP-M Strength Start: 11/16/24 09:38 Freq: Status: Active Protocol: Document 02/16/25 09:48 GG (Rec: 02/16/25 10:11 GG Laptop) Hip Strength Hip Manual Muscle Testing Right Flexion (L2) 4+ Good+ Extension (S1) 4 Good Abduction 4+ Good+ Adduction 5 Normal Left Flexion (L2) 4+ Good+ Extension (S1) 4 Good Abduction 4+ Good+ Adduction 5 Normal Ankle/Foot Strength Ankle and Foot Manual Muscle Testing Right Plantarflexion (S1) 2+ Poor+ Comments unable to do SL heel raise PT-OP-Q Treatments Start: 11/16/24 09:38 Freq: Status: Active Protocol: Document 02/16/25 09:48 GG (Rec: 02/16/25 10:08 GG Laptop) Gym Equipment Shuttle Rebound balance Exercise Details green weighted ball toss on foam Reps/Duration 1 min B Comments 1. tandem 2. SL SBA Shuttle Balance red clips Details both directions w/ ballon volley Comments fwd and lateral facing: WBOS, NBOS, staggered stance B Therapeutic Exercises Standing Exercises hip ext Side bilateral Resistance L2 and L3 Reps/Minutes x10 ea level band hip abd Side bilateral Resistance L3 Reps/Minutes x20 DF Standing Exercise Name toe raises against rail Side bilateral Reps/Minutes x10 B and x10 SL on R heel raises Standing Exercise Name DL up w/ R SL down Reps/Minutes x10 Neuro Re-Education Treatment Balance Activities SL Surface firm Reps/Duration 30 sec B PT-OP-T Assessment and Plan Start: 11/16/24 09:38 Freq: Status: Active Protocol: Document 02/16/25 09:48 GG (Rec: 05/29/25 10:08 GG Laptop) Physical Therapy Assessment Goals strength Short Term Goal (STG) Pt will be indep w/HEP STG Duration achieved advancing as able Logistics Supply Officer Goal (LTG) Pt will score at least 4+/5 on all BLE MMT to show improved stability to allow return to full activity. 12/06-improved 01/17-improved 02/16-improved and shows HEP compliance to cont increasing strength LTG Duration 02/28 ROM Logistics Supply Officer Goal (LTG) Pt will have DF to at least 5 deg in knee ext position and at least 10 deg in knee flex position to allow ability to do typical activities like stairs and ladders w/o inc pain 12/06-5 deg in ext achieved, 8 deg now in knee flex position LTG Duration acheived 01/17 balance Short Term Goal (STG) Pt will improve RLE SLS to at least 10 sec to show improved balance. STG Duration achieved to 15 sec Usp Goal (LTG) Pt will improve RLE SLS to at least 20 sec to show improved balance. 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 Pt has more confidence in ability to perform those activities and w / HEP. Physical Therapy Plan Discharge Physical Therapy Discharge Reasons Goals Met Discharge Comments Pt shows improved strength from start of POC and has good compliance w/ HEP to cont building strength on his own.
== END 2025-02-21 11:07 | disposition home or self-care (01) ==
LOC: PHYS 09:00
PROVIDERS: Family Provider Family Medicine; PCP Family Medicine; Referring Provider Family Medicine; Visit Provider Family Medicine
DX: M25.579 Pain in unspecified ankle and joints of unspecified foot (principal); S86.019A Strain of unspecified Achilles tendon, initial encounter
CPT/HCPCS: 97110; 97112; 97140; 97162; 97535

== ENCOUNTER → 2025-07-28 08:08 | Outpatient (CLI) | payer MEDICARE, SELFPAY | LOC: ECHO 08:09 | PROVIDERS: PCP Family Medicine; Referring Provider Internal Medicine Cardiovascular Disease; Visit Provider Internal Medicine Cardiovascular Disease | DX: I08.3 Combined rheumatic disorders of mitral, aortic and tricuspid valves (principal); I77.810 Thoracic aortic ectasia | CPT/HCPCS: 93306 ==